=== PATIENT | male | born 1980 | race Caucasian/White ===

== ENCOUNTER 2019-04-25 08:25 | Emergency (ER) | payer SELFPAY ==
[2019-04-25 08:26] VITALS: BP 176/113; PULSE 75; RESP 16; TEMP 36.9; O2SAT 100; BMI 19.8
--- NOTE | 2019-04-25 08:42 | CT_ITS ---
STUDY: CT ABDOMEN AND PELVIS WITH CONTRAST REASON FOR EXAM: Male, 39 years old. 2 day history of mid buttock pain. History of anal fistulas. RADIATION DOSAGE (If Supplied By Facility): CTDIvol = ( 9.91 ) mGy, DLP = ( 488.02 ) mGycm TECHNIQUE: Transaxial images were obtained from the dome of the diaphragm to the symphysis pubis without oral contrast. IV 100mL Isovue-300 100 was administered. Sagittal and coronal images were reconstructed. Individualized dose optimization techniques were used for this CT. COMPARISON: None. FINDINGS: The visualized lung bases are unremarkable. The visualized portions of the heart are within normal limits. Normal liver. Normal gallbladder and extrahepatic biliary system. Normal spleen. Normal pancreas. Normal bilateral adrenal glands. Normal right kidney. Normal left kidney. There is a small hiatal hernia. There is evidence of a circumferential wall thickening of the proximal small bowel loops although without oral contrast, the bowel is not adequately distended. Clinical correlation is recommended. Normal colon. There are surgical clips in the region of the appendix consistent with a prior appendectomy. Normal abdominal aorta. Normal inferior vena cava. Normal retroperitoneum. Normal urinary bladder. There is a 1.5 cm x 2.1 cm x 3 cm rounded hypodensity in the posterior aspect of the perineum. This may represent a small cyst or possible abscess. Mild increased markings in the surrounding fat. Small bilateral benign-appearing inguinal lymph nodes. Normal osseous structures. CT/Abdomen/Pelvis W IV Cont ONLY IMPRESSION: 1.5 cm x 2.1 cm x 3 cm rounded hypodensity posterior aspect of the perineum. Diffusely thickened proximal small bowel loops. Clinical correlation is recommended. Electronically Signed: Robbi Delcid, at 10:11 EST , Service support ,
--- NOTE | 2019-04-25 08:52 | ED.VISSUMM ---
- ER Visit Summary Date of Service: 04/25/19 Chief Complaint: Buttock pain History of Present Illness: The patient is a 39 M presenting with buttock pain x2 days. He states he is having pain with bowel movements and with sitting. He denies fever or drainage. He states he has had similar symptoms in the past that resolved with antibiotics. He has not followed up with a surgeon. Denies anal intercourse or rectal foreign bodies. Physical Examination: Vitals are stable. Patient is afebrile. Alert no acute distress. HEENT exam is unremarkable. Neck is supple. Lungs are clear and equal bilaterally. Heart is regular rate and rhythm. Abdomen is soft nontender nondistended. Tenderness of the gluteal cleft with no erythema, warmth, induration, fluctuance. exam is normal Rectal exam is normal. No tenderness or fluctuance. Extremities are unremarkable. Skin is warm and dry. Remainder of exam is unremarkable. Emergency Department Course and Treatment: Patient was given morphine, Zofran IV. CBC, chemistries unremarkable. CT abdomen pelvis shows 1.5 cm x 2.1 cm x 3 cm rounded hypodensity posterior aspect of the perineum. Diffusely thickened proximal small bowel loops. Discussed with Dr. Dunaway. Patient will follow-up in the office. He is given prescription for Bactrim, [place], Colace. Advised to return to the ED for worsening complaints. Disposition: Discharge home Impression: Buttock pain This note was generated with [employer] dictation software. It may contain incorrect words, spelling, and punctuation that were not noted in review of the chart prior to signing ED Disposition - Plan for ED Patient: Referrals: Care Physician,No Primary [Primary Care Provider] -
[2019-04-25 09:15] LABS: Absolute Lymphocyte Count 1.17 X10^3/uL (0.83-4.51); Absolute Neutrophil Count 7.9 X10^3/uL (2.0-7.7); Basophil# 0.02 X10^3/uL; Basophil% 0.2 % (0-1); Eosinophil# 0.05 X10^3/uL; Eosinophils% 0.5 % (0-5); Hematocrit 44.3 % (40-54); Hemoglobin 14.2 g/dL (13.0-16.5); Lymphocyte # 1.17 X10^3/ul (4.0); Lymphocyte % 11.4 % (19-41); Mean Corp Hgb Conc 32.1 g/dL (32-36); Mean Corpuscular Hgb 30.5 pg (27.0-32.0); Mean Corpuscular Volume 95.1 fL (80-94); Mean Platelet Vol. 8.9 fl (6.2-12.0); Monocyte# 1.05 X10^3/uL; Monocyte% 10.2 % (0-10); NRBC Flagged by Analyzer 0 % (0-5); Neutrophil # 7.92 X10^3/uL (2.7-7.7); Neutrophil % 77.3 % (47-70); Platelet Count 302 K/mm3 (150-450); RBC Distribution Width SD 42.5 fl (35.1-43.9); Red Blood Count 4.66 M/mm3 (4.6-6.2); White Blood Count 10.3 K/mm3 (4.4-11.0)
[2019-04-25] MEDS: Ondansetron 4 MG/2 ML Vial IV (09:15)
[2019-04-25] MEDS: Morphine 4 MG/ML Syringe IV ×2 (09:15→11:23)
[2019-04-25 09:29] LABS: Anion Gap 5 (5-15); BUN 10 mg/dL (7-18); BUN/Creat Ratio 13.1 RATIO (10-20); Calcium,Total 8.9 mg/dL (8.5-10.1); Chloride 106 mmol/L (98-107); Creatinine, Serum 0.76 mg/dL (0.70-1.30); EST Glomerular Filtration Rate 122 mL/min (>60); Est Glom Filt Rate - Afr Amer 147 mL/min (>60); Estimated Creatinine Clearance 128.07 ml/min; Glucose 98 mg/dL (74-106); Potassium 4.2 mmol/L (3.5-5.1); Sodium Level 139 mmol/L (136-145)
[2019-04-25 11:12] VITALS: BP 130/100; PULSE 78; RESP 18; O2SAT 99
--- NOTE | 2019-04-25 12:17 | DCINST.ED_ITS ---
ED Disposition - Plan for ED Patient: Instructions: ABSCESS, Antiobiotic Treatment Only Prescriptions: Smz/Tmp Ds [Bactrim Ds] 1 tablet PO BID #14 tablet Docusate Sodium [Colace] 100 mg PO DAILY #10 capsule Hydrocodone Bitart/Apap 5-325 [[place] 5MG-325MG] 1 tablet PO Q6H PRN PRN 3 Days #8 tablet PRN Reason: Pain Referrals: Care Physician,No Primary [Primary Care Provider] - Jami Dunaway MD [STAFF PHYSICIAN] -
[2019-04-25] MEDS: Smz/Tmp Ds Tablet 1 TABLET PO (12:32)
[2019-04-25 12:36] VITALS: BP 125/72; PULSE 62; RESP 16; O2SAT 97
== END 2019-04-25 12:38 | disposition home or self-care (01) ==
PROVIDERS: Emergency Provider Emergency Medicine
DX: M53.3 Sacrococcygeal disorders, not elsewhere classified (principal); K21.9 Gastro-esophageal reflux disease without esophagitis; Z72.0 Tobacco use
CPT/HCPCS: 74177; 80048; 85025; 96374; 96375; 96376; 99284; Q9967; A4216; J2405

== ENCOUNTER 2019-04-26 16:51 | Emergency (ER) | payer SELFPAY ==
[2019-04-25 08:26] VITALS: BMI 19.8
[2019-04-26 16:52] VITALS: BP 125/71; PULSE 78; RESP 15; TEMP 36.6; O2SAT 96; BMI 19.3
--- NOTE | 2019-04-26 17:57 | ED.VIS.GEN ---
History of Present Illness Chief Complaint: Abscess Detail of Chief Complaint: Increased pain and swelling perirectal area Informant: Patient Onset: Today Context: Sudden Onset Timing: Continuous Quality: Awoken from sleep at 0200 because of pain and swelling Location: Anus Current Severity: Mild Maximum Severity: Moderate Worsened by: Sitting, using the restroom Relieved by: Nothing Associated Symptoms: No other symptoms Narrative: Patient 39-year-old male was seen yesterday. He had an extensive work-up with no evidence of abscess. He believes he has an abscess now. He denies fever, chills night sweats. He denies history rheumatic fever, heart murmur, SBE or being immune suppressed. He denies blood or mucus in his stool. He denies rectal trauma. He denies history of pilonidal cyst. He states he has similar presentation several years ago and was prescribed antibiotics with resolution of his symptoms. He was prescribed Bactrim. Prior similar symptoms: Yes Recent Illness/Hospitalization: Yes - Past Medical History (1) History of abscess of skin and subcutaneous tissue Status: Acute Past Medical History - Allergies and Home Meds Allergies/Adverse Reactions: Allergies No Known Allergies Allergy (Verified 04/26/19 17:00) Primary Care Physician: Care Physician,No Primary [Primary Care Provider] - Prior records reviewed: Yes Lives: Alone Smoking Status: Current some day smoker Alcohol: Rare Drugs: None Review of Systems General: Denies: Chills, Fever, Malaise, Sweats Cardiovascular: Denies: Chest pain Respiratory: Denies: Dyspnea Gastrointestinal: Reports: - - Rectal pain. Denies: Abdominal pain, Nausea, Vomiting, Diarrhea, Melena, Hematochezia Genitourinary: Denies: Dysuria, Hematuria, Frequency Musculoskeletal: Denies: Myalgias, Arthralgias, Neck pain, Back pain, Swelling, Extremity Pain, -, - Skin: Reports: Abrasions. Denies: Rash Hematologic: Denies: Easy bruising, Easy bleeding Allergy: Denies: Uticaria, Swelling of the mouth Physical Exam Vital Signs/Narrative: Vital Signs Temp Pulse Resp BP Pulse Ox 04/26/19 16:52 97.9 F 78 15 125/71 H 96 Inital Vital Signs reviewed: Yes General: Well nourished, Well developed, No Acute Distress Head: Normocephalic, Atraumatic Eyes: Perrl, EOMI. Negative for: Pale conjunctiva, Scleral icterus ENT: Moist mucous membranes, No rhinorrhea Neck: Supple, Nontender Cardiovascular: Regular rate, Regular rhythm, No murmurs, Normal S1, Normal S2 Respiratory: No distress, CTA bilaterally, Chest nontender Rectal: - - He has a perianal abscess. Slightly to the left of the gluteal crease and extends to the anus. : - - Unremarkable Back: Nontender, Normal Inspection Extremities: Nontender, No edema Skin: Normal color, No rash, No Trauma. Negative for: Cyanosis, Diaphoresis, Jaundice Neurological: Alert, Oriented x3, Cranial nerves II-XII grossly intact, Normal Strength, Normal Sensation Diagnostic/Tx/Re-eval - Medical Decision Making Patient has a perianal abscess. Patient was informed that the treatment for an abscess is an incision and drainage. He did sign consent after he was informed what the procedure entailed and risk benefits. No questions were asked. We will change antibiotic to Augmentin or coverage of Bacteroides faecalis Procedures Procedure(s): Patient was prepped draped sterile manner. The area was anesthetized with 1% lidocaine. A total of 4 cc was instilled. After patient was anesthetized. Incision was made using a 10 blade. The incision was 2 cm in length. Free flow of purulent material. Blunt dissection was undertaken with more purulent material. There is a total of 30 cc. Wick was placed after cavity was irrigated. ED Disposition - Plan for ED Patient: Disposition: Home or Assisted Living Diagnosis: Perianal abscess Instructions: ABSCESS, Incision and Drainage Prescriptions: Amox/Clavulanate Tablet [Augmentin Tablet] 875 mg PO Q12H #14 tab Prescription Printed Oxycodone HCl/Acetaminophen [Percocet 5/325] 1 tab PO Q6H PRN PRN 3 Days #12 tab PRN Reason: Pain Prescription Printed Referrals: Care Physician,No Primary [Primary Care Provider] - Jami Dunaway MD [STAFF PHYSICIAN] - Keep Nasrin appointment
[2019-04-26] MEDS: Amox/Clavulanate 875 MG Tablet PO (18:14)
[2019-04-26 18:21] VITALS: PULSE 82; RESP 17; O2SAT 98
== END 2019-04-26 18:22 | disposition home or self-care (01) ==
PROVIDERS: Emergency Provider Emergency Medicine
DX: K61.0 Anal abscess (principal); F17.200 Nicotine dependence, unspecified, uncomplicated
CPT/HCPCS: 10060; 99283

== ENCOUNTER 2020-01-28 06:46 | Emergency (ER) | payer SELFPAY ==
[2020-01-28 06:47] VITALS: BP 131/90; PULSE 71; RESP 16; TEMP 36.6; O2SAT 100; BMI 19.0
--- NOTE | 2020-01-28 06:59 | ED.VISSUMM ---
- ER Visit Summary Date of Service: 01/28/20 Chief Complaint: Abscess History of Present Illness: The patient is a 39 M who presents with a pilonidal abscess. He has had these 2 times before. This is been ongoing for 2 days. It is worse when he touches or sits on this area. He denies fevers. No drainage. It is painful to touch. Physical Examination: Vital signs reviewed. Skin exam reveals a 2 x 2 centimeter abscess in the pilonidal area. It is fluctuant. There is no drainage. Rest of the physical exam is unremarkable Test Results: None performed Emergency Department Course and Treatment: Patient had incision and drainage of the abscess. 2 cc of lidocaine was used to anesthetize the area locally. A cruciate incision was made over the dome of the abscess. Hemostats were used to break up loculations. There was a moderate amount of purulent drainage. Patient tolerated the procedure well. Patient will be placed on Bactrim. He will be given general surgery follow-up Treatment Plan: [] Disposition: Discharge Impression: Pilonidal abscess I&D by ED physician This note was generated with [employer] dictation software. It may contain incorrect words, spelling, and punctuation that were not noted in review of the chart prior to signing ED Disposition - Plan for ED Patient: Disposition: Home or Assisted Living Instructions: ED Abscess Incision And Drainage Prescriptions: Smz/Tmp Ds [Bactrim Ds] 1 tab PO BID #14 tab Transmission Status: Pending to [facility] Referrals: Care Physician,No Primary [Primary Care Provider] -
[2020-01-28] MEDS: Smz/Tmp Ds Tablet 1 TABLET PO (07:08)
== END 2020-01-28 07:35 | disposition home or self-care (01) ==
LOC: ED 07:21
PROVIDERS: Emergency Provider Emergency Medicine
DX: L05.01 Pilonidal cyst with abscess (principal); Z72.0 Tobacco use
CPT/HCPCS: 10080; 99283

== ENCOUNTER 2020-04-09 04:13 | Emergency (ER) | payer SELFPAY ==
[2020-04-09 04:14] VITALS: BP 144/96; PULSE 76; RESP 16; TEMP 36.3; O2SAT 98; BMI 19.1
--- NOTE | 2020-04-09 04:35 | ED.VIS.GEN ---
History of Present Illness Chief Complaint: Bite Informant: Patient Narrative: Patient is a 40-year-old previously healthy male who presents to the emergency department after he sustained a dog bite to his face and neck. This was his own dog. He states he leaned into get the dog and cats whenever it bit him. Bleeding has been controlled prior to arrival in the emergency department. He has a large laceration at the upper lip involving the vermilion border. There is also multiple small lacerations on the face and neck. Patient not sure when his last tetanus shot was. He is not on any anticoagulation. Denies any other injuries. His dog will be able to be monitored for the next 10 days. Past Medical History - Allergies and Home Meds Allergies/Adverse Reactions: Allergies No Known Allergies Allergy (Verified 04/09/20 04:16) Primary Care Physician: Care Physician,No Primary [Primary Care Provider] - Prior records reviewed: Yes Past Medical History: None Smoking Status: Current every day smoker Review of Systems All systems negative except as indicated General: Denies: Chills, Fever Eyes: Denies: Visual changes - bilaterally, Diplopia Cardiovascular: Denies: Chest pain Respiratory: Denies: Dyspnea, Cough Gastrointestinal: Denies: Abdominal pain, Nausea, Vomiting Musculoskeletal: Denies: Back pain, Extremity Pain Skin: Reports: Abrasions, Wounds. Denies: Rash Neurological: Denies: Headache, Weakness, Numbness Physical Exam Vital Signs/Narrative: Vital Signs Temp Pulse Resp BP Pulse Ox 04/09/20 04:14 97.4 F L 76 16 144/96 H 98 Inital Vital Signs reviewed: Yes General: Well nourished, Well developed Head: Normocephalic Eyes: Perrl, EOMI ENT: Moist mucous membranes Neck: Supple, Nontender, - - V-shaped laceration to right side of the neck. No active bleeding. Each side is approximately 1.5 cm. This is not deep and does not involve any underlying structures. Cardiovascular: Regular rate, Regular rhythm Respiratory: No distress, CTA bilaterally Abdomen: Soft, Nondistended Back: Negative for: Spinal tenderness Extremities: Nontender Skin: Trauma - Patient has multiple lacerations on the right side of the face and neck. The laceration to the lip is very extensive and creates a flap. The vermilion border is involved. Does not appear to go through and through. Neurological: Alert, Cranial nerves II-XII grossly intact, Normal Strength, Normal Sensation Psychological: Normal affect, Normal Mood Diagnostic/Tx/Re-eval - Medical Decision Making Patient presents to the emergency department after getting bit by his dog. He is updated on his tetanus status. Due to the extensive nature of the facial lacerations which does involve the vermilion border I did recommend that the patient be evaluated by a plastic surgeon. I did offer to do the repair in the emergency department but it would get better cosmetic outcome by a surgeon. Patient did want to go this route. He wanted to go to [facility]. I did call and speak with the on-call plastic surgeon, Dr. Ann. She did request pictures and patient consented to having his picture taken of the lip laceration. This was sent only her and the pictures were then deleted. Patient given a dose of oral Augmentin. Patient will be transported by private vehicle to the [facility] emergency department for evaluation. He understands and is agreeable this plan. He is discharged at this time in stable condition. ED Disposition - Plan for ED Patient: Disposition: [facility] Diagnosis: Dog bite, Complex laceration of face, Laceration of neck Referrals: Care Physician,No Primary [Primary Care Provider] - Additional Instructions: Go to [facility] Emergency department. Dr. Ann, the information technology account manager plastic surgeon will evaluate you there.
[2020-04-09] MEDS: Diphth,Pertuss(Acell),Tet Vac 0.5 ML Vial IM (04:52)
[2020-04-09] MEDS: Amox/Clavulanate 875 MG Tablet PO (04:53)
== END 2020-04-09 05:34 | disposition short-term general hospital (02) ==
PROVIDERS: Emergency Provider Emergency Medicine
DX: S01.511A Laceration without foreign body of lip, initial encounter (principal); S11.91XA Laceration without foreign body of unspecified part of neck, initial encounter; Z23 Encounter for immunization; F17.200 Nicotine dependence, unspecified, uncomplicated; W54.0XXA Bitten by dog, initial encounter; Y93.89 Activity, other specified; Y92.009 Unspecified place in unspecified non-institutional (private) residence as the place of occurrence of the external cause; Y99.8 Other external cause status
CPT/HCPCS: 90715; 99283

== ENCOUNTER 2022-05-30 08:28 | Observation (INO) | payer SELFPAY ==
[2022-05-30] VITALS (9 sets, daily range): BP systolic 120–161; BP diastolic 81–96; PULSE 53–85; RESP 14–18; TEMP 36.3–36.7; O2SAT 97–100; BMI 19.8; BMI 18.2
--- NOTE | 2022-05-30 09:15 | CT_ITS ---
STUDY: CT ABDOMEN AND PELVIS WITH CONTRAST REASON FOR EXAM: Male, 42 years old. Back pain, rectal bleeding -- IV PO Contrast RADIATION DOSAGE (If Supplied By Facility): CTDIvol = ( 11.02 ) mGy, DLP = ( 437.71 ) mGycm TECHNIQUE: Transaxial images were obtained from the dome of the diaphragm to the symphysis pubis with oral contrast. Oral and amp;amp; IV Gastrografin and amp;amp; 100mL Isovue-300 was administered. Sagittal and coronal images were reconstructed. Individualized dose optimization techniques were used for this CT. COMPARISON: Comparison is made with prior study dated 04/25/2019. FINDINGS: The visualized lung bases are unremarkable. The visualized portions of the heart are within normal limits. Normal liver. Normal gallbladder and extrahepatic biliary system. Normal spleen. Normal pancreas. Normal bilateral adrenal glands. Normal right kidney. Normal left kidney. Normal visualized stomach. There is evidence of a mural thickening of the terminal ileum with narrowing as well as thickening of the haustral pattern of the right hemicolon. Crohn''s disease should be ruled out. There is also evidence of a sigmoid diverticulosis. The patient is status post appendectomy. Normal abdominal aorta. Normal inferior vena cava. Normal retroperitoneum. Diffuse bladder wall thickening. Normal abdominal wall. Normal osseous structures. CT/Abdomen/Pelvis WITH Contrast IMPRESSION: Findings suggestive of a inflammatory bowel disease involving the terminal ileum in the right hemicolon. Sigmoid diverticulosis. Diffuse bladder wall thickening. Electronically Signed: Robbi Delcid MD at 12:05 EST ,
--- NOTE | 2022-05-30 09:16 | EDS_ITS ---
HPI History of Present Illness Chief Complaint: Back Detail of Chief Complaint: Back pain, GI bleed Informant: patient Onset/Context/Timing Onset: Weeks Context: Gradual Onset Timing: Waxes and wanes Current Severity: Moderate Maximum Severity: Severe Narrative Narrative: Patient presents with several week history of increasing low back pain.He does note some intermittent blood in his stool the last couple days. He states he had similar symptoms about 6 months ago that seem to resolve and he never got checked out for it. He does note having a bowel movement 5 or 6 times a day and only able to pass a small amount of stool at a time.He denies fever or chills. No unintentional weight loss. He does have a history of diverticulitis. He states he also drinks regularly and was concerned about liver or kidney problems. [facility] Medical History Diverticulitis Home Medications NK 04/09/20 [History Last Taken Unknown] Allergy/AdvReac Type Severity Reaction Status Date / Time No Known Allergies Allergy Verified 04/09/20 04:16 Surgical History Hx of appendectomy Social History (Updated 05/30/22 @ 09:[address] Beth Tucker MD) Smoking Status: Current every day smoker tobacco type: cigarettes alcohol intake: current ROS ROS ED Constitutional Constitutional ED: Denies chills or fever(s) Eyes Eyes: Denies change in vision or discharge from eye(s) ENT ENT ED: Denies discharge from eye(s), rhinorrhea or sore throat Cardiovascular Cardiovascular: Denies chest pain or palpitations Respiratory/Chest Respiratory/Chest: Denies cough or dyspnea Gastrointestinal Gastrointestinal: Reports abdominal pain and other Details: Blood in stool ; Denies diarrhea, nausea or vomiting Genitourinary Genitourinary ED: Denies difficulty urinating or dysuria Musculoskeletal Musculoskeletal: Reports back pain; Denies extremity pain Integumentary Denies Abrasions or rash Neurologic Neurologic: Denies headache(s) or weakness Psychiatric Psychiatric: Denies anxiety or depression Allergic/Immunologic Allergic/Immunologic ED: Denies lip swelling or urticaria EXAM Physical Exam Const Vital Signs: 05/30/22 08:29 05/30/22 10:56 05/30/22 12:20 Temperature 97.3 F L Temperature Source Temporal Pulse Rate 74 60 61 Respiratory Rate 18 16 18 Blood Pressure 123/81 H 127/96 H 131/95 H Blood Pressure Mean 95 106 107 Pulse Ox 100 100 100 Oxygen Delivery Method Room Air Room Air Room Air Positive well nourished and well developed General Appearance ED: well developed HEENT Reports normocephalic and head/scalp atraumatic Eyes PERRL and EOMs intact bilaterally Neck supple Chest Wall inspection of chest normal and palpation of chest normal Resp normal respiratory effort and clear to auscultation bilaterally Cardio regular rate and regular rhythm GI non-tender Auscultation: hypoactive bowel sounds Palpation: soft Back/Spine no CVA tenderness Back/Spine Narrative: Mild midline lumbar tenderness. No erythema or skin changes. Extremity normal to inspection Neuro oriented x3 and no sensory deficits noted Sensorium / Orientation: alert Motor Exam: strength 5/5 throughout Psych Mood & Affect: tearful Skin no rashes or lesions noted MDM MDM MDM Narrative Medical decision making narrative: Patient has been receiving morphine and Zofran for pain control. IV fluids ordered. Lab work obtained along with CT scan of the abdomen and pelvis. Lab Data Attestation: I reviewed the patient's lab results. Labs: Laboratory Results - last 24 hr 05/30/22 05/30/22 05/30/22 09:36 09:36 09:36 WBC 8.4 RBC 4.53 L Hgb 13.9 Hct 43.4 MCV 95.8 H MCH 30.7 MCHC 32.0 RDW Std Deviation 42.3 RDW Coeff of Emre 11.9 Plt Count 302 MPV 9.2 Immature Gran % (Auto) 0.200 Neut % (Auto) 68.6 Lymph % (Auto) 22.2 [place] % (Auto) 8.0 Eos % (Auto) 0.8 Baso % (Auto) 0.2 Absolute Neuts (auto) 5.7 Absolute Lymphs (auto) 1.85 Nucleated RBC % 0 PT 11.9 INR 0.9 APTT 29.5 Sodium 140 Potassium 3.8 Chloride 109 H Carbon Dioxide 29.0 Anion Gap 2 L BUN 10 Creatinine 0.81 Estim Creat Clear Calc 116.66 Est GFR (MDRD) Af Amer 136 Est GFR (MDRD) Non-Af 112 BUN/Creatinine Ratio 12.4 Glucose 103 Calcium 8.9 Total Bilirubin 0.90 Direct Bilirubin 0.23 AST 23 ALT 30 Alkaline Phosphatase 58 Total Protein 7.0 Albumin 3.8 Globulin 3.2 Radiography Diagnostic Testing: Clinical Impression(s) from Imaging Studies Abdomen/Pelvis CT 05/30/22 09:15 IMPRESSION: Findings suggestive of a inflammatory bowel disease involving the terminal ileum in the right hemicolon. Sigmoid diverticulosis. Diffuse bladder wall thickening. Electronically Signed: Robbi Delcid MD at 12:05 EST , Treatment and Re-Evaluation Narrative: CBC reveals normal white count 8.4 and hemoglobin is 13.9. Coags unremarkable. Chemistry studies along with LFTs are unremarkable. CT scan of the abdomen pelvis reveals findings suggestive of inflammatory bowel disease. I spoke with Dr. Wheeler, on-call for GI. He would like the patient to be admitted for IV Peace u-Medrol 125 mg every 6 hours. He would like stool studies ordered and he will see the patient with a probable scope tomorrow. This is been discussed with the patient and he is in agreement. I will speak with the hospitalist. Discharge Plan Triage Chief Complaint: Back ED Provider: Beth Tucker Dx/Rx/DC Orders Clinical Impression: Inflammatory bowel disease Prescriptions: No Action NK Primary Care Provider: Care Physician,No Primary Referrals: Care Physician,No Primary [Primary Care Provider] - Disposition Disposition: Acute Care [facility]
[2022-05-30] MEDS: Ondansetron 4 MG/2 ML Vial IV ×2 (09:32→11:40)
[2022-05-30] MEDS: Morphine 4 MG/ML Syringe IV ×2 (09:32→11:40)
[2022-05-30] MEDS: 0.9% Normal Saline 1,000 ML 150 ML IV (09:33)
[2022-05-30 09:44] LABS: Absolute Lymphocyte Count 1.85 X10^3/uL (0.83-4.51); Absolute Neutrophil Count 5.7 X10^3/uL (2.0-7.7); Basophil# 0.02 X10^3/uL; Basophil% 0.2 % (0-1); Eosinophil# 0.07 X10^3/uL; Eosinophils% 0.8 % (0-5); Hematocrit 43.4 % (40-54); Hemoglobin 13.9 g/dL (13.0-16.5); Lymphocyte # 1.85 X10^3/ul (0.83-4.51); Lymphocyte % 22.2 % (19-41); Mean Corpuscular Hgb 30.7 pg (27.0-32.0); Mean Corpuscular Volume 95.8 fL (80-94); Mean Platelet Vol. 9.2 fl (6.2-12.0); Monocyte# 0.67 X10^3/uL; NRBC Flagged by Analyzer 0 % (0-5); Neutrophil # 5.72 X10^3/uL (2.7-7.7); Neutrophil % 68.6 % (47-70); Platelet Count 302 K/mm3 (150-450); RBC Distribution Width CV 11.9 % (11.6-14.6); RBC Distribution Width SD 42.3 fl (35.1-43.9); Red Blood Count 4.53 M/mm3 (4.6-6.2); White Blood Count 8.4 K/mm3 (4.4-11.0)
[2022-05-30 09:50] LABS: International Normalized Ratio 0.9; Prothrombin Time (Protime)PT. 11.9 SECONDS (11.7-14.9)
[2022-05-30 09:51] LABS: Partial Thromboplast Time 29.5 Seconds (24.1-36.2)
[2022-05-30 09:55] LABS: AST(SGOT) 23 U/L (15-37); Alanine Aminotransfer ALT/SGPT 30 U/L (16-61); Albumin, Serum 3.8 g/dL (3.2-5.0); Alkaline Phosphatase 58 U/L (45-117); Anion Gap 2 (5-15); BUN 10 mg/dL (7-18); BUN/Creat Ratio 12.4 RATIO (10-20); Bilirubin, Direct 0.23 mg/dL (0.00-0.30); Calcium,Total 8.9 mg/dL (8.5-10.1); Chloride 109 mmol/L (98-107); Creatinine, Serum 0.81 mg/dL (0.70-1.30); EST Glomerular Filtration Rate 112 mL/min (>60); Est Glom Filt Rate - Afr Amer 136 mL/min (>60); Estimated Creatinine Clearance 116.66 ml/min; Globulin 3.2 g/dL (2.2-4.2); Glucose 103 mg/dL (74-106); Potassium 3.8 mmol/L (3.5-5.1); Sodium Level 140 mmol/L (136-145)
[2022-05-30] MEDS: MethylPREDNISolone 125 MG/2 ML Vial IV ×3 (13:08→23:05)
--- NOTE | 2022-05-30 13:10 | PCM.HP.STD ---
HPI - General General Date of Admission: 05/30/22 Date of Service: 05/30/22 Chief Complaint: Abdominal Pain/Back Pain HPI Narrative SUPRIYA DYER, is a 42 M who presented to the emergency department was coming hospital with back and abdominal pain. Patient states has been ongoing for couple months and he has been seeing his chiropractor. He has not had any relief and this morning when he woke up he stated his pain was 10 out of 10 therefore he came to the emergency department. They have given him some medication he states his pain is much better now than it was previously. He denies any radiation or associated tingling numbness and weakness. He has had no fever or chills. He denies any dysuria or urinary frequency. No gross hematuria. He states that his father is currently being worked up for a bowel disorder as well and at this point they are thinking it might be inflammatory bowel disease. Patient has no other family history of GI concerns. He denies any nausea or vomiting, constipation or diarrhea. He has had some blood in his stool on and off. States he had an episode several months ago like this but it went away without any intervention and he never had any further work-up done. Patient takes no medications regularly. Vital signs on presentation showed temperature 97.3, heart rate 74, blood pressure 123/81, respiratory rate 18, oxygen saturations 100% on room air. His CBC is under markable other than some mild macrocytosis with no associated anemia. Coags are normal. Chemistries are unremarkable. His UA was unremarkable with no signs of infection. CT of the abdomen pelvis shows findings suggestive of inflammatory bowel disease involving the terminal ileum in the right hemicolon, sigmoid diverticulosis, and diffuse bladder wall thickening. Case was discussed with Dr. Wheeler from gastroenterology by the emergency department physician he recommended we obtain stool studies and start IV Solu-Medrol 125 mg every 6 hours. He was given the initial dose of 125 mg in the emergency department. [facility] Medical History Diverticulitis Tetrahydrocannabinol (THC) use disorder, mild, abuse Tobacco abuse Home Medications NK 04/09/20 [History Last Taken Unknown] Allergy/AdvReac Type Severity Reaction Status Date / Time No Known Allergies Allergy Verified 04/09/20 04:16 Family History Other Bowel disease Surgical History Hx of appendectomy Social History Smoking Status: Current every day smoker tobacco type: cigars per week: 14 alcohol intake: current alcohol intake frequency: 3 or more drinks per day details: 3-4 12 oz Keeler Light daily substance use type: marijuana ROS Constitutional Constitutional: Reports anorexia; Denies change in weight, chills, fatigue, fever(s), malaise, night sweats, weakness or other Eyes Eyes: Denies blurry vision, change in eye color, change in vision, discharge from eye(s), double vision, erythema, eye pain, loss of vision or other ENT HEENT: Denies abnormal hearing, dysphagia, ear pain, epistaxis, headache(s), hearing loss, nasal congestion, nasal discharge, post nasal drip, sinus pressure, sore throat or other Cardiovascular Cardiovascular: Denies chest pain, claudication, dyspnea on exertion, edema, lightheadedness, orthopnea, palpitations, paroxysmal nocturnal dyspnea, rapid heart rate, syncope or other Respiratory/Chest Respiratory/Chest: Denies cough, dyspnea, excessive phlegm production, hemoptysis, productive cough, shortness of breath at rest, shortness of breath with exertion, wheezing or other Gastrointestinal Gastrointestinal: Reports abdominal pain and hematochezia; Denies coffee ground emesis, constipation, diarrhea, dyspepsia, hematemesis, loose stools, melena, nausea, vomiting or other Genitourinary Genitourinary: Denies burning urination, difficulty urinating, dysuria, hematuria, nocturia, urinary frequency, urinary hesitancy, urinary incontinence, urinary urgency or other Musculoskeletal Musculoskeletal: Reports back pain; Denies arthralgias, joint pain, joint stiffness, joint swelling, myalgias, neck pain or other Neurologic Neurologic: Denies abnormal gait, abnormal speech, confusion, disequilibrium, dizziness, focal weakness, headache(s), numbness, paresthesias, seizure-like activity, seizures, syncope, tingling, tremor(s) or other Psychiatric Psychiatric: Denies anxiety, depression, homicidal ideation, suicidal ideation or other Endocrine Endocrinology: Denies change in body appearance, cold intolerance, excessive sweating, heat intolerance, polydipsia, polyuria or other Hematologic/Lymphatic Hematologic/Lymphatic: Denies anemia, easy bleeding, easy bruising, lymphadenopathy or other Allergic/Immunologic Allergic/Immunologic: Denies rhinitis, hives, eczemia, asthma or other Vital Signs Vital Signs Vital Signs: 05/30/22 08:29 05/30/22 10:56 05/30/22 12:20 Temperature 97.3 F L Temperature Source Temporal Pulse Rate 74 60 61 Respiratory Rate 18 16 18 Blood Pressure 123/81 H 127/96 H 131/95 H Blood Pressure Mean 95 106 107 Pulse Ox 100 100 100 Oxygen Delivery Method Room Air Room Air Room Air Weight Weight: 68.039 kg Body Mass Index (BMI) 19.8 Physical Exam Const alert, oriented x3 and no apparent distress Constitutional Narrative: Thin, middle-aged, white male sitting up in bed, appears comfortable and nontoxic General Appearance: cooperative HEENT normocephalic, head/scalp atraumatic and hearing grossly normal bilaterally HEENT Narrative: Dentures in place, Mallampati 1, no thrush Eyes PERRL, EOMs intact bilaterally and conjunctivae normal Eyes Narrative: No scleral icterus Neck no lymphadenopathy and supple Neck Narrative: Trachea midline, no thyroid enlargement Resp normal respiratory effort, no retractions, no use of accessory muscles and clear to auscultation bilaterally Auscultation: Negative for crackles, rhonchi or wheezes Cardio regular rate, regular rhythm, S1 normal heart sound, S2 normal heart sound, no murmurs, no rub, no gallops and no clicks GI normal to inspection, nondistended, normoactive bowel sounds and soft to palpation; Negative for non-tender GI Narrative: Very mild diffuse tenderness most notable on the right side and left side in the lower quadrants Back/Spine General Back: tenderness Lumbar Spine / Lower Back: paraspinal muscle tenderness, paraspinal muscle spasm and straight leg raise negative bilaterally Extremity no clubbing, cyanosis or edema Extremity Narrative: 2+ pedal pulses Neuro oriented x3, CN's II-XII intact bilaterally, moves all extremities and no focal motor deficits Speech: speech normal Psych affect normal Psych Narrative: Very pleasant Results Lab / Micro Data Attestation: I reviewed the patient's lab results. Result Diagrams: 05/30/22 09:36 05/30/22 09:36 Labs: Laboratory Results - last 24 hr 05/30/22 09:36: WBC 8.4, RBC 4.53 L, Hgb 13.9, Hct 43.4, MCV 95.8 H, MCH 30.7, MCHC 32.0, RDW Std Deviation 42.3, RDW Coeff of Emre 11.9, Plt Count 302, MPV 9.2, Immature Gran % (Auto) 0.200, Neut % (Auto) 68.6, Lymph % (Auto) 22.2, [place] % (Auto) 8.0, Eos % (Auto) 0.8, Baso % (Auto) 0.2, Absolute Neuts (auto) 5.7, Absolute Lymphs (auto) 1.85, Nucleated RBC % 0 05/30/22 09:36: PT 11.9, INR 0.9, APTT 29.5 05/30/22 09:36: Sodium 140, Potassium 3.8, Chloride 109 H, Carbon Dioxide 29.0, Anion Gap 2 L, BUN 10, Creatinine 0.81, Estim Creat Clear Calc 116.66, Est GFR (MDRD) Af Amer 136, Est GFR (MDRD) Non-Af 112, BUN/Creatinine Ratio 12.4, Glucose 103, Calcium 8.9, Total Bilirubin 0.90, Direct Bilirubin 0.23, AST 23, ALT 30, Alkaline Phosphatase 58, Total Protein 7.0, Albumin 3.8, Globulin 3.2 Radiology Impression Abdomen/Pelvis CT 05/30/22 09:15 IMPRESSION: Findings suggestive of a inflammatory bowel disease involving the terminal ileum in the right hemicolon. Sigmoid diverticulosis. Diffuse bladder wall thickening. Electronically Signed: Robbi Delcid MD at 12:05 EST , Assessment & Plan Assessment/Plan (1) Inflammatory bowel disease: (2) Abdominal pain: (3) Back pain: PLAN: Plan Abdominal pain -CT from admission shows findings suggestive of inflammatory bowel disease involving the terminal ileum and right hemicolon with sigmoid diverticulosis and diffuse bladder wall thickening. -UA is pending -Start Solu-Medrol 125 every 6 per GI recommendations -N.p.o. -IV fluids at 75 cc/h with LR -Dilaudid for pain -Anticipate colonoscopy -No elevated white count or any signs of infection therefore we will hold antibiotics at this time Back pain -May be related to the above but unclear at this time -No abnormalities of the osseous structures on the CT -Check x-rays of lumbar spine -Check UA -If UA suggestive infection will obtain culture and start empiric antibiotics -Topical lidocaine -Zanaflex as needed -Dilaudid as above Tobacco abuse -Patient states he smokes about 2 cigars daily -Nicotine patch made available and patient notified -Recommend cessation Daily alcohol use -Patient indicates he drinks 3-4 Keeler Light's a day -Never had any withdrawal issues -Last drink was about 36 hours ago and no signs of withdrawal at this time -We will monitor clinically Marijuana use -Recommend cessation DVT prophylaxis -Lovenox 40 daily CODE STATUS -Full code Charges/Coding Visit Charges OBSV E&M: 33433 Initial observation care L3
--- NOTE | 2022-05-30 13:24 | NURSING ---
MED SURG OBS ALLISON INFLAMMATORY BOWEL DISEASE
--- NOTE | 2022-05-30 13:50 | RAD_ITS ---
STUDY: X-RAY - LUMBAR SPINE REASON FOR EXAM: Male, 42 years old. One and half month history of back pain. TECHNIQUE: 2 view(s) of the lumbar spine were obtained. COMPARISON: None FINDINGS: There is straightening of the normal lumbar lordosis. There is no substantial scoliosis. There is a normal alignment of the vertebrae. Normal vertebral bodies and endplates. Normal disc space heights. Oral contrast is seen in the colon as well as intravenous contrast in the kidneys from prior CT scan. RAD/Lumbar Spine 2 or 3 Views IMPRESSION: Straightening of the normal lumbar lordosis. Electronically Signed: Robbi Delcid MD at 14:13 EST ,
[2022-05-30 14:05] LABS: Bacteria 0 SEEN /hpf (None Seen); Mucous, Urine 0 SEEN /hpf (<or=2+); Red Blood Cells-Urine 0 SEEN /hpf (0-5); Squamous Epithelial Cells - UA 0 SEEN /hpf (0-5); White Blood Cells 0 SEEN /hpf (0-5)
[2022-05-30 14:17] LABS: Color, Urine Yellow (Yellow); Glucose, Dipstick Normal (Normal); Ketone-Dipstick Negative (Negative); Leukocyte Esterase-Dipstick Negative /ul (Negative); Nitrite-Dipstick Negative (Negative); Occult Blood-Urine Negative /ul (Negative); Protein-Dipstick Negative (Negative); Urine Bilirubin Dipstick Negative (Negative); Urine Clarity Clear (Clear); Urine Urobilinogen Normal (Normal)
[2022-05-30 14:24] LABS: Amorphous Sediment 1+
[2022-05-30] MEDS: Lactated Ringers 1,000 ML 75 ML IV (16:40)
[2022-05-30] MEDS: Bisacodyl 5 MG Tablet 20 MG PO (16:41)
[2022-05-30] MEDS: Acetaminophen 325 MG Tablet 650 MG PO ×2 (16:42→23:03)
--- NOTE | 2022-05-30 17:05 | EX.PCM.CON.G ---
HPI Consult Data Date of Consult: 05/30/22 HPI Narrative Reason for Consultation: Possible Crohn's disease HPI Narrative: SUPRIYA DYER, is a 42 M who presents with several week history of increasing low back pain.He does note some intermittent blood in his stool the last couple days.? He states he had similar symptoms about 6 months ago that seem to resolve and he never got checked out for it.? He does note having a bowel movement 5 or 6 times a day and only able to pass a small amount of stool at a time.He denies fever or chills.? No unintentional weight loss.? He does have a history of diverticulitis.? He states he also drinks regularly and was concerned about liver or kidney problems. e has had some blood in his stool on and off.? States he had an episode several months ago like this but it went away without any intervention and he never had any further work-up done.? Patient takes no medications regularly. Vital signs on presentation showed temperature 97.3, heart rate 74, blood pressure 123/81, respiratory rate 18, oxygen saturations 100% on room air.? His CBC is under markable other than some mild macrocytosis with no associated anemia.? His coagulation cascade is normal and his biochemistry profile is normal. His UA was unremarkable with no signs of infection.? CT of the abdomen pelvis shows findings suggestive of inflammatory bowel disease involving the terminal ileum in the right hemicolon, sigmoid diverticulosis, and diffuse bladder wall thickening. stool studies were ordered and he was start IV Solu-Medrol 125 mg every 6 hours.? [facility] Medical History Diverticulitis Tetrahydrocannabinol (THC) use disorder, mild, abuse Tobacco abuse Home Medications NK 04/09/20 [History Last Taken Unknown] Allergy/AdvReac Type Severity Reaction Status Date / Time No Known Allergies Allergy Verified 04/09/20 04:16 Family History Other Bowel disease Surgical History Hx of appendectomy Social History Smoking Status: Current every day smoker tobacco type: cigars per week: 14 alcohol intake: current alcohol intake frequency: 3 or more drinks per day details: 3-4 12 oz Gomer Light daily substance use type: marijuana ROS Constitutional Constitutional: Reports anorexia; Denies change in weight, chills, fatigue, fever(s), malaise, night sweats, weakness or other Eyes Eyes: Denies blurry vision, change in eye color, change in vision, discharge from eye(s), double vision, erythema, eye pain, loss of vision or other ENT HEENT: Denies abnormal hearing, dysphagia, ear pain, epistaxis, headache(s), hearing loss, nasal congestion, nasal discharge, post nasal drip, sinus pressure, sore throat or other Cardiovascular Cardiovascular: Denies chest pain, claudication, dyspnea on exertion, edema, lightheadedness, orthopnea, palpitations, paroxysmal nocturnal dyspnea, rapid heart rate, syncope or other Respiratory/Chest Respiratory/Chest: Denies cough, dyspnea, excessive phlegm production, hemoptysis, productive cough, shortness of breath at rest, shortness of breath with exertion, wheezing or other Gastrointestinal Gastrointestinal: Reports abdominal pain and hematochezia; Denies coffee ground emesis, constipation, diarrhea, dyspepsia, hematemesis, loose stools, melena, nausea, vomiting or other Genitourinary Genitourinary: Denies burning urination, difficulty urinating, dysuria, hematuria, nocturia, urinary frequency, urinary hesitancy, urinary incontinence, urinary urgency or other Musculoskeletal Musculoskeletal: Reports back pain; Denies arthralgias, joint pain, joint stiffness, joint swelling, myalgias, neck pain or other Neurologic Neurologic: Denies abnormal gait, abnormal speech, confusion, disequilibrium, dizziness, focal weakness, headache(s), numbness, paresthesias, seizure-like activity, seizures, syncope, tingling, tremor(s) or other Psychiatric Psychiatric: Denies anxiety, depression, homicidal ideation, suicidal ideation or other Endocrine Endocrinology: Denies change in body appearance, cold intolerance, excessive sweating, heat intolerance, polydipsia, polyuria or other Hematologic/Lymphatic Hematologic/Lymphatic: Denies anemia, easy bleeding, easy bruising, lymphadenopathy or other Allergic/Immunologic Allergic/Immunologic: Denies rhinitis, hives, eczemia, asthma or other Physical Exam Const alert, oriented x3 and no apparent distress General Appearance: cooperative HEENT normocephalic, head/scalp atraumatic and hearing grossly normal bilaterally Eyes PERRL, EOMs intact bilaterally and conjunctivae normal Eyes Narrative: No scleral icterus Neck no lymphadenopathy and supple Neck Narrative: Trachea midline, no thyroid enlargement Resp normal respiratory effort, no retractions, no use of accessory muscles and clear to auscultation bilaterally Auscultation: Negative for crackles, rhonchi or wheezes Cardio regular rate, regular rhythm, S1 normal heart sound, S2 normal heart sound, no murmurs, no rub, no gallops and no clicks GI normal to inspection, nondistended, normoactive bowel sounds and soft to palpation; Negative for non-tender GI Narrative: Very mild diffuse tenderness most notable on the right side and left side in the lower quadrants Back/Spine General Back: tenderness Lumbar Spine / Lower Back: paraspinal muscle tenderness, paraspinal muscle spasm and straight leg raise negative bilaterally Extremity no clubbing, cyanosis or edema Extremity Narrative: 2+ pedal pulses Neuro oriented x3, CN's II-XII intact bilaterally, moves all extremities and no focal motor deficits Speech: speech normal Psych affect normal Psych Narrative: Very pleasant Lab / Micro Data Result Diagrams: 05/30/22 09:36 05/30/22 09:36 Labs: Laboratory Results - last 24 hr 05/30/22 09:36: WBC 8.4, RBC 4.53 L, Hgb 13.9, Hct 43.4, MCV 95.8 H, MCH 30.7, MCHC 32.0, RDW Std Deviation 42.3, RDW Coeff of Emre 11.9, Plt Count 302, MPV 9.2, Immature Gran % (Auto) 0.200, Neut % (Auto) 68.6, Lymph % (Auto) 22.2, [place] % (Auto) 8.0, Eos % (Auto) 0.8, Baso % (Auto) 0.2, Absolute Neuts (auto) 5.7, Absolute Lymphs (auto) 1.85, Nucleated RBC % 0 05/30/22 09:36: PT 11.9, INR 0.9, APTT 29.5 05/30/22 09:36: Sodium 140, Potassium 3.8, Chloride 109 H, Carbon Dioxide 29.0, Anion Gap 2 L, BUN 10, Creatinine 0.81, Estim Creat Clear Calc 116.66, Est GFR (MDRD) Af Amer 136, Est GFR (MDRD) Non-Af 112, BUN/Creatinine Ratio 12.4, Glucose 103, Calcium 8.9, Total Bilirubin 0.90, Direct Bilirubin 0.23, AST 23, ALT 30, Alkaline Phosphatase 58, Total Protein 7.0, Albumin 3.8, Globulin 3.2 05/30/22 14:00: Urine Color Yellow, Urine Clarity Clear, Urine pH 8.0, Ur Specific [place] 1.010, Urine Protein Negative, Urine Glucose (UA) Normal, Urine Ketones Negative, Urine Occult Blood Negative, Urine Nitrite Negative, Urine Bilirubin Negative, Urine Urobilinogen Normal, Ur Leukocyte Esterase Negative, Urine RBC 0 SEEN, Urine WBC 0 SEEN, Ur Squamous Epith Cells 0 SEEN, Amorphous Sediment 1+, Urine Bacteria 0 SEEN, Urine Mucus 0 SEEN Micro: Microbiology 05/30/22 14:57 Stool Stool Lactoferrin - Final Radiology Impression Abdomen/Pelvis CT 05/30/22 09:15 IMPRESSION: Findings suggestive of a inflammatory bowel disease involving the terminal ileum in the right hemicolon. Sigmoid diverticulosis. Diffuse bladder wall thickening. Electronically Signed: Robbi Delcid MD at 12:05 EST , Lumbar Spine X-Ray 05/30/22 13:50 IMPRESSION: Straightening of the normal lumbar lordosis. Electronically Signed: Robbi Delcid MD at 14:13 EST , Assessment & Plan Assessment/Plan (1) Inflammatory bowel disease: PLAN: Likely inflammatory bowel disease. I will order stool culture and fecal calprotectin. I will also order ESR, CRP. He should undergo colonoscopy for evaluation of his lower GI tract. Continue Solu-Medrol 125 mg IV every 6 hours. He was explained alternatives, risk, benefits including outstanding bleeding, infection, sepsis, perforation, need for emergent or to . He will have an ASA of 1. Charges/Coding Visit Charges Inpatient E&M: 08114 Init Hosp L2
[2022-05-30] MEDS: Polyethylene Glycol 3350 BOWEL PREP PO (17:11)
[2022-05-31] VITALS (15 sets, daily range): BP systolic 116–163; BP diastolic 82–103; PULSE 49–85; RESP 15–18; TEMP 36.6–37.2; O2SAT 97–100; BMI 18.2
--- NOTE | 2022-05-31 | IMM_PTH ---
PATIENT: SUPRIYA DYER LOC: [facility] U#:[id number] AGE/SX: 42/M ROOM: [facility] RE05/30/[address]: Dr. Jaguar Juarez MD : 1980 BED: 1 DIS: 06/01/2022 SPEC #: [id number] RECD: 06/02/22 14:51 STATUS: JUDE REQ #: [id number] SANGITA: 05/31/22 00:[address]: Sundeep Wheeler DEPT: IMMUNOHISTOCHEMISTRY RECD BY: Stacia Thomas ENTERED: 06/02/22 14:53 SP TYPE: IMMUNO OTHR DR: MD Dr. Brianna Carrillo, DO No Primary Care Phys Tissues: C - Sigmoid colon biopsy Procedures: Synapto (add) CD56 (add) CHROMO (add) CK20 (add) CK7 (add) CK8 (add) MORROW-2 (add) KI-67 (add) P53 (add) Pankeratin (initial) CDX2 (add) PHYSICIAN & [address] [address] SPECIMEN INFORMATION: Tissue Source: C ? Sigmoid colon mass Clinical Info: Inflammatory bowel disease Specimen Number: [id number] CPT code: 07853, 04356 x10 METHODOLOGY: Deparaffinized sections of prefer/formalin-fixed tissue or PAP/DQ stained slides are incubated with monoclonal/polyclonal antibodies/oligonucleotide probes. Localization is made via biotin free immunoperoxidase method. Appropriate controls are performed and reacted as expected. Results on target cell population are indicated in the following table: RESULTS: ANTIBODY / CLONE RESULT Block C AE1-3 (AE1/AE3/PCK26) positive CK7 (OV-TL12/30) negative CK8 ([id number]) positive CK20 (KS20.8) positive MORROW-2 (SP21) positive CDX2 ([id number]) positive CD56 (123C3.D5) negative Chromo (LK2H10) negative Synapto (polyclonal) negative P53 (DO-7) positive, low (wild type) Ki-67 (30-9) positive, moderate These tests were developed and their performance characteristics determined by [facility]. They may not have been cleared or approved by the U.S. Food and Drug Administration. The FDA has determined that such clearance or approval is not necessary. The above immunohistochemical/dualISH markers are ordered and reviewed by the Pathologist. INTERPRETATION: C. Sigmoid colon mass, biopsy: Consistent with inflammatory polyp with focal hyperplastic changes. See comment. SJ:fawad 06/05/2022 Comment: Focal area of pseudoinvasion is noted. Case has been reviewed in consultation with Dr. Osorio who concurs with the above diagnosis. IDC:[id number]
[2022-05-31] MEDS: Lactated Ringers 1,000 ML 75 ML IV ×2 (04:18→12:38)
--- NOTE | 2022-05-31 05:55 | EKG12_ITS ---
Test Reason : AM EKG Blood Pressure : / mmHG Vent. Rate : 069 BPM Atrial Rate : 069 BPM P-R Int : 108 ms QRS Dur : 088 ms QT Int : 374 ms P-R-T Axes : -17 076 079 degrees QTc Int : 400 ms Sinus rhythm with short PA Otherwise normal ECG Confirmed by JULY FERMIN, TOYA ([id number]), supervising editor news reel NIKKI NEGRON ([id number]) on 05/31/2022 11:15:05 AM Referred By: Confirmed By:TOYA MCDOWELL MD
[2022-05-31] MEDS: MethylPREDNISolone 125 MG/2 ML Vial IV ×3 (06:18→18:43)
[2022-05-31] MEDS: 0.9% Saline Lock 10 ML Syringe IV ×3 (06:21→18:43)
--- NOTE | 2022-05-31 07:26 | PCM.PN.HOSP ---
Subjective Subjective Patient is a 42-year-old male admitted with 6-week history of abdominal and back pain. CT of the abdomen obtained on admission did show ?CT of the abdomen pelvis shows findings suggestive of inflammatory bowel disease involving the terminal ileum in the right hemicolon, sigmoid diverticulosis, and diffuse bladder wall thickening. Admitted to regular nursing floor with consultation placed to GI plan is for patient to undergo colonoscopy Objective Data Objective Data Vital Signs: Vital Signs Temp Pulse Resp BP Pulse Ox O2 Del Method 97.8 F 62 18 116/82 H 97 Room Air 05/31/22 06:25 05/31/22 06:25 05/31/22 06:25 05/31/22 06:25 05/31/22 06:25 05/31/22 06:25 Oxygen Delivery Method Room Air Weight: 62.624 kg Body Mass Index (BMI) 18.2 Intake & Output: Intake and Output for Last 24 Hours 05/29/22 05/30/22 05/31/22 23:59 23:59 23:59 Intake Total 1360 / 3360 2872.5 / 2872.5 Balance 1360 / 3360 2872.5 / 2872.5 Lab / Micro Data Result Diagrams: 05/31/22 06:46 05/31/22 06:46 Labs: Laboratory Results - last 24 hr 05/30/22 09:36: WBC 8.4, RBC 4.53 L, Hgb 13.9, Hct 43.4, MCV 95.8 H, MCH 30.7, MCHC 32.0, RDW Std Deviation 42.3, RDW Coeff of Emre 11.9, Plt Count 302, MPV 9.2, Immature Gran % (Auto) 0.200, Neut % (Auto) 68.6, Lymph % (Auto) 22.2, Letcher % (Auto) 8.0, Eos % (Auto) 0.8, Baso % (Auto) 0.2, Absolute Neuts (auto) 5.7, Absolute Lymphs (auto) 1.85, Nucleated RBC % 0 05/30/22 09:36: PT 11.9, INR 0.9, APTT 29.5 05/30/22 09:36: Sodium 140, Potassium 3.8, Chloride 109 H, Carbon Dioxide 29.0, Anion Gap 2 L, BUN 10, Creatinine 0.81, Estim Creat Clear Calc 116.66, Est GFR (MDRD) Af Amer 136, Est GFR (MDRD) Non-Af 112, BUN/Creatinine Ratio 12.4, Glucose 103, Calcium 8.9, Total Bilirubin 0.90, Direct Bilirubin 0.23, AST 23, ALT 30, Alkaline Phosphatase 58, Total Protein 7.0, Albumin 3.8, Globulin 3.2 05/30/22 14:00: Urine Color Yellow, Urine Clarity Clear, Urine pH 8.0, Ur Specific [place] 1.010, Urine Protein Negative, Urine Glucose (UA) Normal, Urine Ketones Negative, Urine Occult Blood Negative, Urine Nitrite Negative, Urine Bilirubin Negative, Urine Urobilinogen Normal, Ur Leukocyte Esterase Negative, Urine RBC 0 SEEN, Urine WBC 0 SEEN, Ur Squamous Epith Cells 0 SEEN, Amorphous Sediment 1+, Urine Bacteria 0 SEEN, Urine Mucus 0 SEEN Micro: Microbiology 05/30/22 14:57 Stool Stool Lactoferrin - Final 05/30/22 14:57 Stool Enteric Bacteriology - Final 05/30/22 14:57 Stool C. difficile DNA Amplification - Final Radiography Diagnostic Testing: Radiology Impression Abdomen/Pelvis CT 05/30/22 09:15 IMPRESSION: Findings suggestive of a inflammatory bowel disease involving the terminal ileum in the right hemicolon. Sigmoid diverticulosis. Diffuse bladder wall thickening. Electronically Signed: Robbi Delcid MD at 12:05 EST Reading Location ID and State: [facility] / [place] , Service support , Lumbar Spine X-Ray 05/30/22 13:50 IMPRESSION: Straightening of the normal lumbar lordosis. Electronically Signed: Robbi Delcid MD at 14:13 EST , Physical Exam Narrative GENERAL: cooperative HEENT: Atraumatic; normocephalic EYES; Anicteric, Normal Conjunctiva NECK; supple, normal thyroid, RESPIRATORY: Diminished to auscultation CARDIOVASCULAR: Regular S1 S2, GI: soft, normoactive bowel sounds, : No Renal angle tenderness; EXTREMITIES: No edema, no clubbing, MUSCULOSKELETAL: no muscle wasting NEURO: Awake; no lateralizing signs. SKIN: No Rash PSYCH; Flat affect Assessment & Plan Assessment/Plan (1) Inflammatory bowel disease: (2) Abdominal pain: (3) Back pain: PLAN: Plan Patient is a 42-year-old male admitted with 6-week history of abdominal and back pain. CT of the abdomen obtained on admission did show ?CT of the abdomen pelvis shows findings suggestive of inflammatory bowel disease involving the terminal ileum in the right hemicolon, sigmoid diverticulosis, and diffuse bladder wall thic Abdominal pain ? Secondary to suspected inflammatory bowel disease. Patient has been seen in consultation by GI. Initial work-up including stool culture, fecal calprotectin, ESR CRP ordered. Plan is for patient to undergo colonoscopy with biopsy. Patient has been started on Solu-Medrol 2. Tobacco dependence - Counseled on cessation, offered nicotine patch for tobacco cravings 3. Chronic back pain ? Treated symptomatically 4. Chronic alcohol dependence ? Counseled on cessation 5. DVT prophylaxis -Lovenox 40 daily CODE STATUS -Full code Charges/Coding Visit Charges Inpatient E&M: 51908 Subs Hosp L2
[2022-05-31 07:29] LABS: Absolute Neutrophil Count 10.3 X10^3/uL (2.0-7.7); Basophil# 0.01 X10^3/uL; Basophil% 0.1 % (0-1); Eosinophil# 0.01 X10^3/uL; Eosinophils% 0.1 % (0-5); Hematocrit 43.9 % (40-54); Lymphocyte % 9.5 % (19-41); Mean Corp Hgb Conc 31.9 g/dL (32-36); Mean Corpuscular Hgb 30.8 pg (27.0-32.0); Mean Corpuscular Volume 96.5 fL (80-94); Mean Platelet Vol. 9.8 fl (6.2-12.0); Monocyte# 0.14 X10^3/uL; Monocyte% 1.2 % (0-10); NRBC Flagged by Analyzer 0 % (0-5); Neutrophil # 10.27 X10^3/uL (2.7-7.7); Neutrophil % 88.8 % (47-70); Platelet Count 318 K/mm3 (150-450); RBC Distribution Width CV 11.8 % (11.6-14.6); RBC Distribution Width SD 41.9 fl (35.1-43.9); Red Blood Count 4.55 M/mm3 (4.6-6.2); White Blood Count 11.6 K/mm3 (4.4-11.0)
[2022-05-31 08:08] LABS: ALB/GLOB Ratio 1.1 RATIO (0.9-2.4); AST(SGOT) 16 U/L (15-37); Alanine Aminotransfer ALT/SGPT 26 U/L (16-61); Albumin, Serum 3.5 g/dL (3.2-5.0); Alkaline Phosphatase 56 U/L (45-117); Anion Gap 7 (5-15); BUN 9 mg/dL (7-18); BUN/Creat Ratio 13.8 RATIO (10-20); Chloride 107 mmol/L (98-107); Creatinine, Serum 0.65 mg/dL (0.70-1.30); EST Glomerular Filtration Rate 144 mL/min (>60); Est Glom Filt Rate - Afr Amer 174 mL/min (>60); Estimated Creatinine Clearance 133.81 ml/min; Globulin 3.3 g/dL (2.2-4.2); Glucose 136 mg/dL (74-106); Potassium 3.7 mmol/L (3.5-5.1); Protein, Total 6.8 g/dL (6.4-8.2); Sodium Level 139 mmol/L (136-145); Thyroid Stim Hormone (TSH) 1.16 uIU/mL (0.358-3.74)
[2022-05-31] MEDS: Acetaminophen 325 MG Tablet 650 MG PO (09:34)
--- NOTE | 2022-05-31 10:19 | NURSING ---
Called report to Andrez CHRISTIAN in Endo
--- NOTE | 2022-05-31 11:30 | COLBX_PTH ---
PATIENT: SUPRIYA DYER LOC: [facility] U#:[id number] AGE/SX: 42/M ROOM: [facility] RE05/30/[address]: Dr. Jaguar Juarez MD : 1980 BED: 1 DIS: 06/01/2022 SPEC #: [id number] RECD: 05/31/22 12:49 STATUS: JUDE REQ #: [id number] SANGITA: 05/31/22 11:[address]: Sundeep Wheeler DEPT: SURGICAL PATHOLOGY RECD BY: Farzaneh Martines ENTERED: 06/01/22 08:54 SP TYPE: COLON BX OTHR DR: MD Dr. Brianna Carrillo, DO No Primary Care Phys Tissues: A - Ileum, NOS B - COLON BIOPSY C - Sigmoid colon biopsy Procedures: Surgery Specimen Level IV Comments: @ Ordering doctor for SUIV edited from to @ by CAR at 06/01/22 1443 @ Submitting doctor edited from to @ by RGOOD at 06/01/22 1443 HEADER OPERATION: Colonoscopy with biopsy, hot snare and clip application (MAC) PRE-OP DIAGNOSIS: Inflammatory bowel disease TISSUE SUBMITTED: A - Terminal ileum biopsy, B - Random colon biopsy, C - Sigmoid colon mass biopsy MICROSCOPIC DIAGNOSIS A. Terminal ileum, biopsy: Fragments of small intestinal mucosa, no pathologic diagnosis. B. Colon, random biopsy: Fragments of colonic mucosa, no pathologic diagnosis. C. Sigmoid colon mass, excisional biopsy: Consistent with inflammatory polyp with focal hyperplastic changes. See comment. SJ:fawad 06/02/2022 COMMENT Focal pseudoinvasion is noted. Immunohistochemistry ([id number]) supports the above diagnosis. Case has been reviewed in consultation with Dr. Osorio who concurs with the above diagnosis. IDC:AM MICROSCOPIC DESCRIPTION Slides are reviewed. GROSS DESCRIPTION A - Received in fixative is one container labeled with the patient's name and designated terminal ileum biopsy. The specimen consists of multiple irregular fragments of light nascimento soft tissue that in aggregate measure 1 x 0.4 x 0.1 cm. The specimen is totally submitted in one cassette. B - Received in fixative is one container labeled with the patient's name and designated random colon biopsy. The specimen consists of multiple irregular fragments of light nascimento soft tissue that in aggregate measure 1 x 0.5 x 0.1 cm. The specimen is totally submitted in one cassette. C - Received in fixative is one container labeled with the patient's name and designated sigmoid colon mass biopsy. The specimen consists of a piece of nascimento-pink soft tissue measuring 0.7 x 0.5 x 0.3 cm. The specimen is totally submitted in one cassette. / SJ:rg 06/01/2022 TC:5 CPT: 66974 x3
--- NOTE | 2022-05-31 12:41 | OP.COLON_ITS ---
Patient Name: Emil Barrientos Procedure Date: 05/31/2022 11:41 AM Date of : 1980 Age: 42 Procedure: Colonoscopy Indications: Abdominal pain in the left lower quadrant, Clinically significant diarrhea of unexplained origin Providers: Sundeep Wheeler DO Medicines: Monitored Anesthesia Care Patient Profile: This is a 42 year old male. Refer to note in patient chart for documentation of history and physical. Last Colonoscopy: none. The patient's first colonoscopy is today. Complications: No immediate complications. Procedure: Pre-Anesthesia Assessment: - Prior to the procedure, a History and Physical was performed, and patient medications and allergies were reviewed. The patient is competent. The risks and benefits of the procedure and the sedation options and risks were discussed with the patient. All questions were answered and informed consent was obtained. Patient identification and proposed procedure were verified by the physician in the pre-procedure area. Mental Status Examination: alert and oriented. Airway Examination: normal oropharyngeal airway and neck mobility. Respiratory Examination: clear to auscultation. CV Examination: normal. Prophylactic Antibiotics: The patient does not require prophylactic antibiotics. Prior Anticoagulants: The patient has taken no previous anticoagulant or antiplatelet agents. ASA Grade Assessment: II - A patient with mild systemic disease. After reviewing the risks and benefits, the patient was deemed in satisfactory condition to undergo the procedure. The anesthesia plan was to use monitored anesthesia care (MAC). Immediately prior to administration of medications, the patient was re-assessed for adequacy to receive sedatives. The heart rate, respiratory rate, oxygen saturations, blood pressure, adequacy of pulmonary ventilation, and response to care were monitored throughout the procedure. The physical status of the patient was re-assessed after the procedure. After I obtained informed consent, the scope was passed under direct vision. Throughout the procedure, the patient's blood pressure, pulse, and oxygen saturations were monitored continuously. The colonoscope was introduced through the anus and advanced to the terminal ileum. The colonoscopy was performed without difficulty. The patient tolerated the procedure well. The quality of the bowel preparation was good. Scope In: 11:45:56 AM Scope Withdrawal Time 0 hours 33 minutes 35 seconds Scope Out: 12:24:29 PM Total Procedure Duration Time 0 hours 38 minutes 33 seconds Findings: Hemorrhoids were found on perianal exam. Multiple small and large-mouthed diverticula were found in the recto-sigmoid colon, sigmoid colon, descending colon, splenic flexure, transverse colon, hepatic flexure and ascending colon. A 7 mm polyp was found in the sigmoid colon. The polyp was sessile. The polyp was removed with a hot snare. Resection and retrieval were complete. Verification of patient identification for the specimen was done. To prevent bleeding post-intervention, one hemostatic clip was successfully placed. There was no bleeding at the end of the procedure. Area was tattooed with an injection of Jane ink. An area of mildly congested mucosa was found in the sigmoid colon, in the descending colon, in the transverse colon and in the ascending colon. Biopsies were taken with a cold forceps for histology. Verification of patient identification for the specimen was done. Estimated blood loss was minimal. A localized area of the [Site] was congested. Biopsies were taken with a cold forceps for histology. Verification of patient identification for the specimen was done. Impression: - Hemorrhoids found on perianal exam. - Diverticulosis in the recto-sigmoid colon, in the sigmoid colon, in the descending colon, at the splenic flexure, in the transverse colon, at the hepatic flexure and in the ascending colon. - One 7 mm polyp in the sigmoid colon, removed with a hot snare. Resected and retrieved. Clip was placed. Tattooed. - Congested mucosa in the sigmoid colon, in the descending colon, in the transverse colon and in the ascending colon. Biopsied. - Congested mucosa terminal ileum. Biopsied. Recommendation: - Await pathology results. - Repeat colonoscopy in 1 year for surveillance based on pathology results. - Continue present medications. Procedure Code(s): --- Professional --- 72976, Colonoscopy, flexible; with removal of tumor(s), polyp(s), or other lesion(s) by snare technique 01954, Colonoscopy, flexible; with directed submucosal injection(s), any substance 47456, 59, Colonoscopy, flexible; with biopsy, single or multiple CPT copyright 2017 [employer]. All rights reserved. The codes documented in this report are preliminary and upon operating cost clerk review may be revised to meet current compliance requirements. Sundeep Wheeler DO 05/31/2022 12:41:27 PM This report has been signed electronically. Number of Addenda: 0 Note Initiated On: 05/31/2022 11:41 AM
--- NOTE | 2022-05-31 12:42 | OP.CCLET_ITS ---
05/31/2022 No Primary Care Physician Re : Colonoscopy procedure for Emil Barrientos Dear Care Physician This procedure was performed on Tuesday, May 31, 2022. My impressions and recommendations are as follows: Impressions : - Hemorrhoids found on perianal exam. - Diverticulosis in the recto-sigmoid colon, in the sigmoid colon, in the descending colon, at the splenic flexure, in the transverse colon, at the hepatic flexure and in the ascending colon. - One 7 mm polyp in the sigmoid colon, removed with a hot snare. Resected and retrieved. Clip was placed. Tattooed. - Congested mucosa in the sigmoid colon, in the descending colon, in the transverse colon and in the ascending colon. Biopsied. - Congested mucosa terminal ileum. Biopsied. Recommendations : - Await pathology results. - Repeat colonoscopy in 1 year for surveillance based on pathology results. - Continue present medications. My findings are described in the full procedure note, which is enclosed. If I can be of further assistance, please feel free to contact me at . Sincerely, Sundeep Wheeler, 05/31/2022 12:41:27 PM This report has been signed electronically.
[2022-05-31] MEDS: Lidocaine 5% Patch 1 PATCH TOPICAL (13:43)
[2022-05-31] MEDS: Enoxaparin 40 MG/0.4 ML Syringe SC (13:44)
[2022-05-31] MEDS: Ondansetron 4 MG/2 ML Vial IV (17:55)
[2022-05-31] MEDS: proCHLORPERazine 10 MG/2 ML Vial 5 MG IV (18:43)
[2022-06-01] MEDS: MethylPREDNISolone 125 MG/2 ML Vial IV ×3 (00:42→12:26)
[2022-06-01] MEDS: Lactated Ringers 1,000 ML 75 ML IV ×2 (01:50→14:12)
[2022-06-01 03:00] VITALS: PULSE 67
[2022-06-01 05:07] VITALS: BP 143/98; PULSE 81; RESP 16; TEMP 37.3; O2SAT 100
[2022-06-01] MEDS: Acetaminophen 325 MG Tablet 650 MG PO (05:09)
[2022-06-01 07:36] VITALS: O2SAT 96
[2022-06-01 07:52] VITALS: PULSE 92
[2022-06-01] MEDS: Ondansetron 4 MG/2 ML Vial IV (08:31)
--- NOTE | 2022-06-01 08:50 | PCM.PN.HOSP ---
Subjective Subjective Patient underwent colonoscopy by Dr. Wheeler today prior results are as below - Hemorrhoids found on perianal exam. - Diverticulosis in the recto-sigmoid colon, in the sigmoid colon, in the ?descending colon, at the splenic flexure, in the transverse colon, at the ?hepatic flexure and in the ascending colon. - One 7 mm polyp in the sigmoid colon, removed with a hot snare.? Resected and ?retrieved.? Clip was placed.? Tattooed. - Congested mucosa in the sigmoid colon, in the descending colon, in the ?transverse colon and in the ascending colon.? Biopsied. - Congested mucosa terminal ileum.? Biopsied. Seen this morning patient complains of nausea and abdominal ache and had some emesis with reddish streaks Objective Data Objective Data Vital Signs: Vital Signs Temp Pulse Resp BP Pulse Ox O2 Del Method 99.2 F H 92 16 143/98 H 96 Room Air 06/01/22 05:07 06/01/22 07:52 06/01/22 05:07 06/01/22 05:07 06/01/22 07:36 06/01/22 07:36 Oxygen Delivery Method Room Air Weight: 62.624 kg Body Mass Index (BMI) 18.2 Intake & Output: Intake and Output for Last 24 Hours 05/30/22 05/31/22 06/01/22 23:59 23:59 23:59 Intake Total 1360 / 3360 3713.75 / 3713.75 220 / 220 Output Total 300 / 300 Balance 1360 / 3360 3413.75 / 3413.75 220 / 220 Lab / Micro Data Result Diagrams: 05/31/22 06:46 05/31/22 06:46 Micro: Microbiology 05/31/22 12:33 Stool Enteric Bacteriology - Final 05/30/22 14:57 Stool Stool Lactoferrin - Final 05/30/22 14:57 Stool Enteric Bacteriology - Final 05/30/22 14:57 Stool C. difficile DNA Amplification - Final Physical Exam Narrative GENERAL: Patient is cooperative HEENT: Atraumatic; normocephalic EYES; Anicteric, Normal Conjunctiva NECK; supple, normal thyroid, RESPIRATORY: Diminished to auscultation CARDIOVASCULAR: Regular S1 S2, GI: soft, normoactive bowel sounds, : No Renal angle tenderness; EXTREMITIES: No edema, no clubbing, MUSCULOSKELETAL: no muscle wasting NEURO: Awake; no lateralizing signs. SKIN: No Rash PSYCH; Flat affect Assessment & Plan Assessment/Plan (1) Inflammatory bowel disease: (2) Abdominal pain: (3) Back pain: PLAN: Plan Patient is a 42-year-old male admitted with 6-week history of abdominal and back pain. CT of the abdomen obtained on admission did show ?CT of the abdomen pelvis shows findings suggestive of inflammatory bowel disease involving the terminal ileum in the right hemicolon, sigmoid diverticulosis, and diffuse bladder wall thic 1. Abdominal pain ? Secondary to suspected inflammatory bowel disease. Patient has been seen in consultation by GI. Initial work-up including stool culture, fecal calprotectin, ESR CRP ordered. Plan is for patient to undergo colonoscopy with biopsy. Patient has been started on Solu-Medrol -06/01/2022 patient underwent colonoscopy by Dr. Wheeler today prior results are as below - Hemorrhoids found on perianal exam. - Diverticulosis in the recto-sigmoid colon, in the sigmoid colon, in the ?descending colon, at the splenic flexure, in the transverse colon, at the ?hepatic flexure and in the ascending colon. - One 7 mm polyp in the sigmoid colon, removed with a hot snare.? Resected and ?retrieved.? Clip was placed.? Tattooed. - Congested mucosa in the sigmoid colon, in the descending colon, in the ?transverse colon and in the ascending colon.? Biopsied. - Congested mucosa terminal ileum.? Biopsied. Seen this morning patient complains of nausea and abdominal ache and had some emesis with reddish streaks 2. Tobacco dependence - Counseled on cessation, offered nicotine patch for tobacco cravings 3. Chronic back pain ? Treated symptomatically 4. Chronic alcohol dependence ? Counseled on cessation 5. DVT prophylaxis -Lovenox 40 daily CODE STATUS -Full code Charges/Coding Visit Charges Inpatient E&M: 17501 Subs Hosp L2
[2022-06-01] MEDS: LORazepam 2 MG/ML Syringe 0.5 MG IV (10:55)
[2022-06-01 11:50] VITALS: BP 145/96; PULSE 82; RESP 16; TEMP 36.9; O2SAT 99
--- NOTE | 2022-06-01 12:56 | CASEMGMT ---
SW met with patient. Introduced self and role at [facility]. Patient said he lives in [place]. SW provided patient with a Medicaid application, list of prescription assistance programs, [facility], and [facility]. Patient is not normally on any prescriptions. SW let patient know we will look to see what medications they are going to discharge him on and if they are expensive [facility] may be able to help him. SW did explain [facility] can only help 1 time a year. Marcy Douglas [employer] MARILYN
--- NOTE | 2022-06-01 14:44 | PCM.DC.SUM ---
Providers Date of Admission: 05/30/22 Date of Discharge: 06/01/22 Primary Care Physician: No Primary Care Phys Reason For Visit: COLITIS WITH SUSPECTED IBD Diagnosis Discharge Diagnosis (1) Inflammatory bowel disease: Status: Acute Code(s): K52.9 - Noninfective gastroenteritis and colitis, unspecified (2) Abdominal pain: Status: Acute Code(s): R10.9 - Unspecified abdominal pain (3) Back pain: Status: Acute Code(s): M54.9 - Dorsalgia, unspecified Plan Patient is a 42-year-old male admitted with 6-week history of abdominal and back pain. CT of the abdomen obtained on admission did show ?CT of the abdomen pelvis shows findings suggestive of inflammatory bowel disease involving the terminal ileum in the right hemicolon, sigmoid diverticulosis, and diffuse bladder wall thic 1. Abdominal pain ? Secondary to suspected inflammatory bowel disease. Patient has been seen in consultation by GI. Initial work-up including stool culture, fecal calprotectin, ESR CRP ordered. Plan is for patient to undergo colonoscopy with biopsy. Patient has been started on Solu-Medrol -06/01/2022 patient underwent colonoscopy by Dr. Wheeler today prior results are as below - Hemorrhoids found on perianal exam. - Diverticulosis in the recto-sigmoid colon, in the sigmoid colon, in the ?descending colon, at the splenic flexure, in the transverse colon, at the ?hepatic flexure and in the ascending colon. - One 7 mm polyp in the sigmoid colon, removed with a hot snare.? Resected and ?retrieved.? Clip was placed.? Tattooed. - Congested mucosa in the sigmoid colon, in the descending colon, in the ?transverse colon and in the ascending colon.? Biopsied. - Congested mucosa terminal ileum.? Biopsied. Seen this morning patient complains of nausea and abdominal ache and had some emesis with reddish streaks. Patient was placed on Protonix with improvement in symptoms discharged home instructed to follow-up with GI as well as PCP for subsequent care 2. Tobacco dependence - Counseled on cessation, offered nicotine patch for tobacco cravings 3. Chronic back pain ? Treated symptomatically 4. Chronic alcohol dependence ? Counseled on cessation 5. DVT prophylaxis -Lovenox 40 daily CODE STATUS -Full code Medications at Discharge Home Medications ondansetron 4 mg disintegrating tablet 4 mg PO Q8H PRN nausea and vomiting #20 tabs 06/01/22 pantoprazole 40 mg tablet,delayed release (Protonix) 40 mg PO DAILY #60 tabs 06/01/22 Hospital Course Summary of Care Provided Minutes Spent on Discharge: 35 Physical Exam Narrative GENERAL: Patient is cooperative HEENT: Atraumatic; normocephalic EYES; Anicteric, Normal Conjunctiva NECK; supple, normal thyroid, RESPIRATORY: Diminished to auscultation CARDIOVASCULAR: Regular S1 S2, GI: soft, normoactive bowel sounds, : No Renal angle tenderness; EXTREMITIES: No edema, no clubbing, MUSCULOSKELETAL: no muscle wasting NEURO: Awake; no lateralizing signs. SKIN: No Rash PSYCH; Flat affect Weight / BMI Weight Weight: 62.624 kg Body Mass Index (BMI) 18.2 ABG / Lab / Microbiology Data Result Diagrams: 05/31/22 06:46 05/31/22 06:46 Microbiology: Microbiology 05/31/22 12:33 Stool Enteric Bacteriology - Final 05/30/22 14:57 Stool Stool Lactoferrin - Final 05/30/22 14:57 Stool Enteric Bacteriology - Final 05/30/22 14:57 Stool C. difficile DNA Amplification - Final D/C Instructions Discharge Diet: No restrictions Discharge Activity: Return to Normal Activity Call your doctor if you observe: Fever of 101 or Higher, Shortness of breath, Fainting spells and Chest pain Meaningful Use Info Meaningful Use Diagnoses (Choose all that apply): None applicable Discharge Plan Admission Admit Date/Time: 05/30/22 13:00 Attending Provider: Jaguar Juarez Primary Care Provider: Care Physician,No Primary Consulting Providers: Brianna Elizabeth Discharge Orders/Prescriptions Prescriptions: New pantoprazole [Protonix] 40 mg tablet,delayed release (DR/EC) 40 mg PO DAILY Qty: 60 0RF ondansetron 4 mg tablet,disintegrating 4 mg PO Q8H PRN (Reason: nausea and vomiting) Qty: 20 0RF Referrals / Follow Up: Sundeep Wheeler DO [Med Staff - Active Staff] - Within 2 Weeks Care Physician,No Primary [Primary Care Provider] - Disposition Disposition (needs filled in before D/C Order can be placed): Home, Self Care Charges/Coding Visit Charges OBSV E&M: 25041 Observation care discharge
[2022-06-01 14:47] VITALS: BP 127/88; PULSE 81; RESP 16; TEMP 37.3; O2SAT 95
== END 2022-06-01 14:47 | disposition home or self-care (01) ==
LOC: ED 12:59 → PCU 13:49
PROVIDERS: Internal Medicine Gastroenterology; Admitting Provider Internal Medicine; Emergency Provider Emergency Medicine; Visit Provider Internal Medicine
PROC: 0DJD8ZZ Inspection of Lower Intestinal Tract, Via Natural or Artificial Opening Endoscopic (ICD-10-PCS; CPT 45378; principal; 2022-05-31 11:25)
DX: K52.9 Noninfective gastroenteritis and colitis, unspecified (principal); F12.99 Cannabis use, unspecified with unspecified cannabis-induced disorder; F10.20 Alcohol dependence, uncomplicated; K57.30 Diverticulosis of large intestine without perforation or abscess without bleeding; K63.5 Polyp of colon; F17.210 Nicotine dependence, cigarettes, uncomplicated; K64.9 Unspecified hemorrhoids; F17.290 Nicotine dependence, other tobacco product, uncomplicated
CPT/HCPCS: 45385; 45380; 45381; 36415; 72100; 74177; 80048; 80053; 80076; 81001; 83630; 83735; 84100; 84443; 85025; 85610; 85730; 87177; 87209; 87493; 87506; 88305; 88341; 88342; 93005; 96361; 96365; 96372; 96375; 96376; 99218; 99251; 99282; J7030; J7040; J7120; Q9967; A4216; A4648; G0378; G0463; J2405; J3490

== ENCOUNTER 2023-12-03 16:53 | Emergency (ER) | payer SELFPAY ==
[2023-12-03 16:54] VITALS: BP 120/84; PULSE 99; RESP 18; TEMP 36.9; O2SAT 100; BMI 17.3
--- NOTE | 2023-12-03 17:24 | EX.ED.DYSGE1 ---
HPI History of Present Illness Chief Complaint: Nausea/Vomiting/Diarrhea Informant: patient Narrative Narrative: 43-year-old male presenting to the emergency room with 1 day history of vomiting and diarrhea. Patient states that he went to the bathroom last evening around 2100 hrs. began to have diarrhea and then vomiting. He notes that he has had the urge to have diarrhea about every half an hour but over the past little bit not much has been coming out. Patient denies any fevers. States he has a history of diverticulitis but this does not feel like that. He states he had a diverticular flare last week that lasted an hour and a half and resolved when he used a heating pad and laid on the side. Patient had a colonoscopy reportedly 2 years ago. States he does not have a primary care doctor or station operator. States whenever he travels he tends to have GI issues. He states a friend told him it could be due to his anxiety. He notes about a 20 pound weight loss over about a year. This has been unintentional. He states normally does not have any difficulty eating. He does not recall any recent travel or bad food exposures. No known sick contacts. [facility] Medical History Tetrahydrocannabinol (THC) use disorder, mild, abuse Tobacco abuse Diverticulitis Home Medications ?Medication ?Instructions ?Recorded ?Last Taken ?Type ondansetron 4 mg disintegrating 4 mg PO Q8H PRN nausea and 06/01/22 Unknown Rx tablet vomiting #20 tabs pantoprazole 40 mg tablet,delayed 40 mg PO DAILY #60 tabs 06/01/22 Unknown Rx release (Protonix) ondansetron 4 mg disintegrating 4 mg PO Q6H PRN PRN Nausea #15 tabs 12/03/23 Unknown Rx tablet Allergy/AdvReac Type Severity Reaction Status Date / Time No Known Allergies Allergy Verified 12/03/23 16:54 Family History Other Bowel disease Surgical History Hx of appendectomy Social History Smoking Status: Current every day smoker tobacco type: cigars per week: 14 alcohol intake: current alcohol intake frequency: 3 or more drinks per day details: 3-4 12 oz [place] daily substance use type: marijuana ROS ROS ED Constitutional Constitutional ED: Denies chills, fever(s) or weight loss Eyes Eyes: Denies change in vision or diplopia ENT ENT ED: Denies ear pain, rhinorrhea or sore throat Cardiovascular Cardiovascular: Denies chest pain, orthopnea, palpitations or racing heartbeat Respiratory/Chest Respiratory/Chest: Denies cough, dyspnea or orthopnea Gastrointestinal Gastrointestinal: Reports diarrhea, nausea and vomiting; Denies abdominal pain Genitourinary Genitourinary ED: Denies dysuria, hematuria or urinary frequency Musculoskeletal Musculoskeletal: Denies arthralgias, back pain, myalgias or neck pain Integumentary Denies abscess or rash Neurologic Neurologic: Denies headache(s) or weakness Psychiatric Psychiatric: Denies anxiety, depression, suicidal ideation or suicidal thoughts Endocrine Endocrinology: Denies polydipsia, polyphagia or polyuria Allergic/Immunologic Allergic/Immunologic ED: Denies mouth swelling, tongue swelling or urticaria EXAM Physical Exam Const Vital Signs: 12/03/23 16:54 12/03/23 18:53 Temperature 98.4 F Temperature Source Temporal Pulse Rate 99 72 Respiratory Rate 18 14 Blood Pressure 120/84 H 167/84 H Blood Pressure Mean 96 111 Pulse Ox 100 99 Oxygen Delivery Method Room Air Room Air Positive well nourished and well developed General Appearance ED: well developed HEENT Reports normocephalic, head/scalp atraumatic and moist mucous membranes Eyes PERRL and EOMs intact bilaterally Neck no lymphadenopathy, supple and no JVD Resp normal respiratory effort and clear to auscultation bilaterally Cardio regular rate, regular rhythm and no murmurs GI normal to inspection, nondistended, normoactive bowel sounds and non-tender Auscultation: hyperactive bowel sounds Palpation: soft; Negative for tender or rebound tenderness present Back/Spine no CVA tenderness and normal ROM Extremity normal to inspection General Extremety ED: Negative for edema General Extremity: Negative for edema Neuro oriented x3 and CN's II-XII intact bilaterally Sensorium / Orientation: alert Motor Exam: strength 5/5 throughout Psych mental status grossly normal Mood & Affect: Negative for depressed or tearful Skin no rashes or lesions noted and no wounds MDM MDM MDM Narrative Medical decision making narrative: Differential diagnosis includes viral gastroenterology bacterial autoimmune colitis diverticulitis appendicitis bowel obstruction volvulus. White count 12.7 hemoglobin 15.6. BMP shows a glucose of 135. BUN of 11 creatinine 1.09 CO2 of 30 anion gap of 10. Liver enzymes within normal limits. Lipase 60. Urinalysis does not demonstrate any acute infection. Patient received IV fluids and Zofran. He required redosing with Zofran and later Toradol for pain. At this point I think the patient most likely has a viral etiology. He may have some underlying chronic gastrointestinal diagnosis given his symptoms when he travels and his weight loss. I would recommend that he follow-up with gastroenterology. I will write for Zofran here tonight. Would encourage oral fluids Imodium as needed. Return if worsening or concerns History & Record Review Discussion w/independent historian: Patient Lab Data Attestation: I reviewed the patient's lab results. Labs: Laboratory Results - last 24 hr 12/03/23 12/03/23 17:05 17:59 WBC 12.7 H RBC 5.06 Hgb 15.6 Hct 48.4 MCV 95.7 H MCH 30.8 MCHC 32.2 RDW Std Deviation 42.3 RDW Coeff of Emre 12.1 Plt Count 383 MPV 9.9 Immature Gran % (Auto) 0.200 Neut % (Auto) 85.2 H Lymph % (Auto) 7.7 L [place] % (Auto) 6.7 Eos % (Auto) 0.0 Baso % (Auto) 0.2 Absolute Neuts (auto) 10.9 H Absolute Lymphs (auto) 0.98 Nucleated RBC % 0 Sodium 138 Potassium 3.2 L Chloride 98 Carbon Dioxide 30.0 Anion Gap 10 BUN 11 Creatinine 1.09 Estim Creat Clear Calc 75.07 Est GFR (MDRD) Af Amer 96 Est GFR (MDRD) Non-Af 79 BUN/Creatinine Ratio 10.1 Glucose 135 H Calcium 10.5 H Total Bilirubin 0.80 Direct Bilirubin 0.16 AST 23 ALT 29 Alkaline Phosphatase 80 Total Protein 9.0 H Albumin 5.0 Globulin 4.0 Lipase 60 Urine Color Yellow Urine Clarity Clear Urine pH 7.0 Ur Specific [place] 1.010 Urine Protein 30 H Urine Glucose (UA) Normal Urine Ketones 150 A* Urine Occult Blood Negative Urine Nitrite Negative Urine Bilirubin Negative Urine Urobilinogen 1 H Ur Leukocyte Esterase 25 H Urine RBC 0 SEEN Urine WBC 0-5 SEEN Ur Squamous Epith Cells 0 SEEN Urine Bacteria 1+ Urine Mucus 2+ Radiography Diagnostic Testing: Clinical Impression(s) from Imaging Studies Abdomen/Pelvis CT 12/03/23 18:48 IMPRESSION: Negative CT of the abdomen and pelvis with intravenous contrast. Electronically Signed: Nadeem Singh MD at 19:53 EDT Reading Location ID and State: [facility] / [place] Tel , Service support , Discharge Plan Triage Chief Complaint: Nausea/Vomiting/Diarrhea ED Provider: Deepak Jimenez Dx/Rx/DC Orders Clinical Impression: Gastroenteritis, Acute dehydration Instructions: ED Gastroenteritis, Viral (Adult) Prescriptions: New ondansetron 4 mg tablet,disintegrating 4 mg PO Q6H PRN PRN (Reason: Nausea) Qty: 15 0RF No Action pantoprazole [Protonix] 40 mg tablet,delayed release (DR/EC) 40 mg PO DAILY Qty: 60 0RF ondansetron 4 mg tablet,disintegrating 4 mg PO Q8H PRN (Reason: nausea and vomiting) Qty: 20 0RF Primary Care Provider: Care Physician,No Primary Referrals: Friend,Sundeep, [Med Staff - Active Staff] - (for gastroenterology evaluation due to your chronic symptoms) Care Physician,No Primary [Primary Care Provider] - Print Language: Icelandic Disposition Disposition: Home, Self Care
[2023-12-03 17:43] LABS: Absolute Lymphocyte Count 0.98 X10^3/uL (0.83-4.51); Absolute Neutrophil Count 10.9 X10^3/uL (2.0-7.7); Basophil# 0.02 X10^3/uL; Basophil% 0.2 % (0-1); Hematocrit 48.4 % (40-54); Hemoglobin 15.6 g/dL (13.0-16.5); Lymphocyte # 0.98 X10^3/ul (0.83-4.51); Lymphocyte % 7.7 % (19-41); Mean Corp Hgb Conc 32.2 g/dL (32-36); Mean Corpuscular Hgb 30.8 pg (27.0-32.0); Mean Corpuscular Volume 95.7 fL (80-94); Mean Platelet Vol. 9.9 fl (6.2-12.0); Monocyte# 0.85 X10^3/uL; Monocyte% 6.7 % (0-10); NRBC Flagged by Analyzer 0 % (0-5); Neutrophil # 10.85 X10^3/uL (2.7-7.7); Neutrophil % 85.2 % (47-70); Platelet Count 383 K/mm3 (150-450); RBC Distribution Width CV 12.1 % (11.6-14.6); RBC Distribution Width SD 42.3 fl (35.1-43.9); Red Blood Count 5.06 M/mm3 (4.6-6.2); White Blood Count 12.7 K/mm3 (4.4-11.0)
[2023-12-03] MEDS: Ondansetron 4 MG/2 ML Vial IV ×2 (17:48→19:28)
[2023-12-03] MEDS: 0.9% Normal Saline (1000mL) 1,000 ML 999 ML IV (17:49)
[2023-12-03 18:03] LABS: Red Blood Cells-Urine 0 SEEN /hpf (0-5); Squamous Epithelial Cells - UA 0 SEEN /hpf (0-5)
[2023-12-03 18:15] LABS: Color, Urine Yellow (Yellow); Glucose, Dipstick Normal (Normal); Leukocyte Esterase-Dipstick 25 /ul (Negative); Nitrite-Dipstick Negative (Negative); Occult Blood-Urine Negative /ul (Negative); Protein-Dipstick 30 mg/dl (Negative); Urine Bilirubin Dipstick Negative (Negative); Urine Clarity Clear (Clear); Urine Urobilinogen 1 mg/dl (Normal)
[2023-12-03 18:15] LABS: AST(SGOT) 23 U/L (15-37); Alanine Aminotransfer ALT/SGPT 29 U/L (16-61); Alkaline Phosphatase 80 U/L (45-117); Anion Gap 10 (5-15); BUN 11 mg/dL (7-18); BUN/Creat Ratio 10.1 RATIO (10-20); Bilirubin, Direct 0.16 mg/dL (0.00-0.30); Calcium,Total 10.5 mg/dL (8.5-10.1); Chloride 98 mmol/L (98-107); Creatinine, Serum 1.09 mg/dL (0.70-1.30); EST Glomerular Filtration Rate 79 mL/min (>60); Est Glom Filt Rate - Afr Amer 96 mL/min (>60); Estimated Creatinine Clearance 75.07 ml/min; Glucose 135 mg/dL (74-106); Lipase 60 U/L (13-75); Potassium 3.2 mmol/L (3.5-5.1); Sodium Level 138 mmol/L (136-145)
--- NOTE | 2023-12-03 18:48 | CT_ITS ---
EXAM: CT ABDOMEN AND PELVIS WITH INTRAVENOUS CONTRAST CLINICAL INDICATION: abdominal pain TECHNIQUE: Helically acquired images were obtained of the abdomen and pelvis with intravenous contrast. This CT exam was performed using one or more of the following dose reduction techniques: automated exposure control, adjustment of the mA and/or kV according to patient size, and/or use of iterative reconstruction technique. CONTRAST: IV 100mL Isovue-370 COMPARISON: 05/30/2022 FINDINGS: LOWER THORAX: Unremarkable. Lung bases are clear. No cardiomegaly. No significant pericardial effusion. ABDOMEN: LIVER: Unremarkable. Homogeneous. No focal mass. GALLBLADDER AND BILE DUCTS: Unremarkable. No calcified gallstones. No gallbladder distention or wall edema. No intra- or extrahepatic biliary ductal dilation. PANCREAS: Unremarkable. No focal cystic or solid mass. SPLEEN: Unremarkable. Normal size without focal cystic or solid mass. ADRENALS: Unremarkable. No nodules. KIDNEYS AND URETERS: Unremarkable. Normal renal size and position. No hydronephrosis. STOMACH AND BOWEL: Unremarkable. No stomach or bowel distention. No focal inflammatory change. PELVIS: APPENDIX: No evidence of acute appendicitis. BLADDER: Unremarkable. REPRODUCTIVE: Unremarkable as visualized. No mass. ABDOMEN and PELVIS: INTRAPERITONEAL SPACE: Unremarkable. No ascites or other fluid collection. No free air. BONES/JOINTS: Unremarkable. No suspicious lytic or blastic abnormality. SOFT TISSUES: Unremarkable. No discrete abdominal or pelvic wall hernia. VASCULATURE: Unremarkable. Abdominal aorta is non-dilated. LYMPH NODES: Unremarkable. No enlarged lymph nodes. CT/Abdomen/Pelvis W IV Cont ONLY IMPRESSION: Negative CT of the abdomen and pelvis with intravenous contrast. Electronically Signed: Nadeem Singh MD at 19:53 EDT ,
[2023-12-03 18:51] LABS: Ketone-Dipstick 150 mg/dl (Negative)
[2023-12-03 18:52] LABS: Bacteria 1+ /hpf (None Seen); Mucous, Urine 2+ /hpf (<or=2+); White Blood Cells 0-5 SEEN /hpf (0-5)
[2023-12-03 18:53] VITALS: BP 167/84; PULSE 72; RESP 14; O2SAT 99
--- NOTE | 2023-12-03 18:53 | ED.RN ---
Lab called with critical urine ketones of 150. Dr. Jimenez notified
[2023-12-03] MEDS: 0.9% Normal Saline (1000mL) 1,000 ML 150 ML IV (19:26)
[2023-12-03] MEDS: Ketorolac 30 MG/ML Syringe IV (20:26)
[2023-12-03 20:31] VITALS: BP 126/81; PULSE 73; RESP 18; TEMP 36.7; O2SAT 98
== END 2023-12-03 20:34 | disposition home or self-care (01) ==
PROVIDERS: Emergency Provider Emergency Medicine; Visit Provider Emergency Medicine
DX: K52.9 Noninfective gastroenteritis and colitis, unspecified (principal); E86.0 Dehydration; F17.200 Nicotine dependence, unspecified, uncomplicated
CPT/HCPCS: 74177; 80048; 80076; 81001; 83690; 85025; 96361; 96374; 96375; 96376; 99283; J7030; Q9967; J2405

== ENCOUNTER 2024-01-18 04:51 | Emergency (ER) | payer SELFPAY ==
[2024-01-18 04:52] VITALS: BP 178/98; PULSE 71; RESP 16; TEMP 36.3; O2SAT 100; BMI 16.5
--- NOTE | 2024-01-18 05:08 | CT_ITS ---
INDICATION: llq pain EXAMINATION: CT ABDOMEN AND PELVIS WITH CONTRAST - CT Abdomen And Pelvis W/ Contrast Injection TECHNIQUE: Helically acquired images were obtained of the abdomen and pelvis following IV contrast. A radiation dose optimization technique was used for this scan. IV Contrast dosage and agent: 100 mL Isovue-370 Oral contrast: None. COMPARISON: April 25, 2019, December 02, 2013., April 25, 2019 FINDINGS: LOWER CHEST: Lung bases are clear. No cardiomegaly or pericardial effusion. LIVER: Homogeneous. No focal mass. GALLBLADDER AND BILIARY TREE: No calcified gallstones. No gallbladder distension or wall edema. No intra- or extrahepatic biliary ductal dilation. PANCREAS: No focal cystic or solid mass. SPLEEN: Normal size without focal cystic or solid mass. ADRENAL GLANDS: No nodules. KIDNEYS AND URETERS: Normal renal size and position. No hydronephrosis. PERITONEUM: No ascites or free air. No other fluid collection. BOWEL: Small hiatal hernia. No acute gastric finding. Wall thickening of the distal duodenum and proximal jejunum without distention or surrounding inflammation, more prominent than prior CT. Prior appendectomy. Scattered distal colonic diverticuli with minimal stranding at the splenic flexure. LYMPH NODES: No enlarged mesenteric or retroperitoneal lymph nodes. VESSELS: Aorta is non-dilated. URINARY BLADDER: Unremarkable. ABDOMINAL WALL: No discrete abdominal or pelvic wall hernia. BONES: No lytic or blastic abnormality. CT/Abdomen/Pelvis W IV Cont ONLY IMPRESSION: Colonic diverticulosis with minimal nonspecific fat stranding at the splenic flexure, possibly representing motion artifact or mild acute uncomplicated diverticulitis. Nonspecific progressive wall thickening of the distal duodenum and proximal jejunum without evidence of obstruction over multiple years. This is of unknown clinical significance, possibly new or recurrent enteritis. Small bowel lymphoma is rare but can cause similar appearance. GI follow-up is recommended. No abdominal adenopathy is appreciated. Electronically Signed: Hiam Jones MD at 7:10 EDT ,
--- NOTE | 2024-01-18 05:13 | ED.VIS.GI ---
HPI HPI - GI History of Present Illness Chief Complaint: Abd Pain Informant: patient Narrative Narrative: Presents by private vehicle worsening vomiting diarrhea abdominal pain since yesterday 4 PM. Started with vomiting. Pain with diarrhea shortly afterwards. States every 1/2 hour. Nonbloody. He states vomiting water. Nausea currently. Appendectomy in the past. Reports had diverticulitis in the past. 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 He had a colonoscopy [address] Wheeler. Denies any allergies. States with urination he needs to push it out however denies any dysuria or frequency. Prior similar symptoms: Yes PFSH PFSH Medical History Tetrahydrocannabinol (THC) use disorder, mild, abuse Tobacco abuse Diverticulitis Home Medications ?Medication ?Instructions ?Recorded ?Last Taken ?Type ondansetron 4 mg disintegrating 4 mg PO Q6H PRN PRN Nausea #15 tabs 12/03/23 Unknown Rx tablet ondansetron 4 mg disintegrating 4 mg PO Q8H PRN PRN Nausea #10 tabs 01/18/24 Unknown Rx tablet Allergy/AdvReac Type Severity Reaction Status Date / Time No Known Allergies Allergy Verified 01/18/24 04:53 Family History Other Bowel disease Surgical History Hx of appendectomy Social History Smoking Status: Current every day smoker tobacco type: cigars per week: 14 alcohol intake: current alcohol intake frequency: 3 or more drinks per day details: 3-4 12 oz [place] daily substance use type: marijuana ROS ROS ED Constitutional Constitutional ED: Denies chills, fever(s) or sweats Eyes Eyes: Denies change in vision ENT ENT ED: Denies dysphagia or sore throat Cardiovascular Cardiovascular: Denies chest pain, leg edema, palpitations or racing heartbeat Respiratory/Chest Respiratory/Chest: Denies cough, dyspnea or dyspnea on exertion Gastrointestinal Gastrointestinal: Reports abdominal pain, diarrhea, nausea and vomiting Genitourinary Genitourinary ED: Denies dysuria, hematuria or urinary frequency Musculoskeletal Musculoskeletal: Denies back pain, extremity pain or neck pain Integumentary Denies rash or wounds Neurologic Neurologic: Denies headache(s), paresthesias or weakness EXAM Physical Exam Const Vital Signs: 01/18/24 04:52 01/18/24 06:52 Temperature 97.3 F L Temperature Source Temporal Pulse Rate 71 65 Respiratory Rate 16 16 Blood Pressure 178/98 H 132/82 H Blood Pressure Mean 124 98 Pulse Ox 100 98 Oxygen Delivery Method Room Air Positive well nourished and well developed General Appearance ED: well developed and NAD HEENT HEENT Narrative: Mild dry mucosal membranes. normocephalic and atraumatic Eyes EOMs intact bilaterally and conjunctivae normal General Eye ED: Yes normal appearance of both eyes Neck no lymphadenopathy and supple General: Negative for tenderness Chest Wall Chest: Negative for tenderness Resp normal respiratory effort and normal air movement Effort and Inspection: symmetric chest movement; Negative for respiratory distress Cardio regular rate, regular rhythm and no murmurs Peripheral Pulses: pulses 2+ throughout GI normal to inspection, nondistended, normoactive bowel sounds GI Narrative: Tender palpation left lower quadrant without guarding or rebound. Negative Liriano's or McBurney's tenderness. Palpation: Negative for guarding or rebound tenderness present Back/Spine no CVA tenderness and no thoracic nor lumbar tenderness Extremity normal to inspection General Extremety ED: Negative for edema or tenderness General Extremity: Negative for edema Neuro oriented x3 and no sensory deficits noted Sensorium / Orientation: awake and alert Skin no rashes or lesions noted and no wounds MDM MDM MDM Narrative Medical decision making narrative: Interventions / MDM: Differential diagnosis: Cannabis hyperemesis syndrome, electrolyte abnormalities, dehydration Diagnosis considered but do not suspect: N/A My EKG interpretation: N/A Imaging independently reviewed and interpreted by myself: CT abdomen pelvis IV contrast: Questionable splenic flexure colitis, nonspecific thickening of duodenum and jejunum. External documents reviewed: Records from 2021: Admitted for terminal ileitis. Colonoscopy and steroid treatment in the hospital at that time. Test considered but not ordered:N/A ED course: Patient had slight dry mucosal membranes abdominal pain on the left lower quadrant no guarding or rebound. Abdomen vomiting diarrhea. Initial order abdominal labs fluids will check urine CT scan abdomen pelvis. Initial order for morphine Zofran and fluids. However after evaluation records noted marijuana use to the confirms daily use and improvement with hot baths throughout the day. Will hold on morphine at this time. Will add capsaicin cream and Haldol to help with symptoms. Will reevaluate. Apparently had terminal ileitis treated 2021. He states he did not follow-up with GI due to not having insurance. States father had diverticulitis and air bowel syndrome however he denies any Crohn's or ulcerative colitis. 729: Patient's symptoms improved with medications. Able to tolerate oral fluid. CT scan nonspecific thickening duodenum to jejunum. He had ileitis back in 2021. He is nontender in this region. Also splenic flexure questionable colitis however nontender also in this area. Discussed with patient concerns for hyperemesis cannabis syndrome with his history. Recurrent symptoms similar 6 weeks ago. Discussed THC cessation. Refill of Zofran sent to his pharmacy he is given follow-up with GI as an outpatient. Return precautions. All points were answered. Re-evaluation: stable Disposition discussed with patient/family/significant other: BMI of 51. Case discussed with consulting clinician: N/A This note was generated with [employer] dictation software. It may contain incorrect words, spelling, and punctuation that were not noted in checking the note before signing. Lab Data Labs: Laboratory Results - last 24 hr 01/18/24 01/18/24 05:05 07:05 WBC 7.7 RBC 4.80 Hgb 14.8 Hct 45.7 MCV 95.2 H MCH 30.8 MCHC 32.4 RDW Std Deviation 43.8 RDW Coeff of Emre 12.4 Plt Count 372 MPV 9.3 Immature Gran % (Auto) 0.400 Neut % (Auto) 85.2 H Lymph % (Auto) 9.0 L [place] % (Auto) 5.1 Eos % (Auto) 0.0 Baso % (Auto) 0.3 Absolute Neuts (auto) 6.6 Absolute Lymphs (auto) 0.69 L Nucleated RBC % 0 Sodium 138 Potassium 3.3 L Chloride 102 Carbon Dioxide 27.0 Anion Gap 9 BUN 11 Creatinine 0.98 Estim Creat Clear Calc 79.97 Est GFR (MDRD) Af Amer 108 Est GFR (MDRD) Non-Af 90 BUN/Creatinine Ratio 11.3 Glucose 143 H Calcium 9.8 Total Bilirubin 1.20 H AST 31 ALT 34 Alkaline Phosphatase 78 Total Protein 8.0 Albumin 4.7 Globulin 3.3 Albumin/Globulin Ratio 1.4 Lipase 21 Urine Color Yellow Urine Clarity Clear Urine pH 8.0 Ur Specific [place] 1.010 Urine Protein 15 H Urine Glucose (UA) Normal Urine Ketones 150 A* Urine Occult Blood Negative Urine Nitrite Negative Urine Bilirubin Negative Urine Urobilinogen Normal Ur Leukocyte Esterase Negative Urine RBC 0 SEEN Urine WBC 0 SEEN Ur Squamous Epith Cells 0 SEEN Urine Bacteria 1+ Urine Mucus 0 SEEN Radiography Diagnostic Testing: Clinical Impression(s) from Imaging Studies Abdomen/Pelvis CT 01/18/24 05:08 IMPRESSION: Colonic diverticulosis with minimal nonspecific fat stranding at the splenic flexure, possibly representing motion artifact or mild acute uncomplicated diverticulitis. Nonspecific progressive wall thickening of the distal duodenum and proximal jejunum without evidence of obstruction over multiple years. This is of unknown clinical significance, possibly new or recurrent enteritis. Small bowel lymphoma is rare but can cause similar appearance. GI follow-up is recommended. No abdominal adenopathy is appreciated. Electronically Signed: Hima Jones MD at 7:10 EDT Reading Location ID and State: [facility] / [place] Tel , Service support , Discharge Plan Triage Chief Complaint: Abd Pain ED Provider: Derian Fuentes Dx/Rx/DC Orders Clinical Impression: Tetrahydrocannabinol (THC) dependence, Nausea, vomiting and diarrhea, Abdominal pain, Dehydration Instructions: Cannabinoid Hyperemesis Syndrome, Abdominal Pain, Dehydration Prescriptions: New ondansetron 4 mg tablet,disintegrating 4 mg PO Q8H PRN PRN (Reason: Nausea) Qty: 10 0RF No Action ondansetron 4 mg tablet,disintegrating 4 mg PO Q6H PRN PRN (Reason: Nausea) Qty: 15 0RF Stand Alone Forms: ED Work / School Excuse Primary Care Provider: Care Physician,No Primary Referrals: Friend,Sundeep, DO [Med Staff - Active Staff] - 1-2 Weeks Care Physician,No Primary [Primary Care Provider] - Print Language: Greek Disposition Disposition: Home, Self Care Discharge Date/Time: 01/18/24 08:01
[2024-01-18] MEDS: 0.9% Normal Saline (1000mL) 1,000 ML 999 ML IV (05:24)
[2024-01-18] MEDS: Haloperidol Lactate 5 MG/ML Vial 2 MG IV (05:25)
[2024-01-18] MEDS: Ondansetron 4 MG/2 ML Vial IV (05:25)
[2024-01-18 05:30] LABS: Absolute Lymphocyte Count 0.69 X10^3/uL (0.83-4.51); Absolute Neutrophil Count 6.6 X10^3/uL (2.0-7.7); Basophil# 0.02 X10^3/uL; Basophil% 0.3 % (0-1); Hematocrit 45.7 % (40-54); Hemoglobin 14.8 g/dL (13.0-16.5); Lymphocyte # 0.69 X10^3/ul (0.83-4.51); Mean Corp Hgb Conc 32.4 g/dL (32-36); Mean Corpuscular Hgb 30.8 pg (27.0-32.0); Mean Corpuscular Volume 95.2 fL (80-94); Mean Platelet Vol. 9.3 fl (6.2-12.0); Monocyte# 0.39 X10^3/uL; Monocyte% 5.1 % (0-10); NRBC Flagged by Analyzer 0 % (0-5); Neutrophil # 6.57 X10^3/uL (2.7-7.7); Neutrophil % 85.2 % (47-70); Platelet Count 372 K/mm3 (150-450); RBC Distribution Width CV 12.4 % (11.6-14.6); RBC Distribution Width SD 43.8 fl (35.1-43.9); White Blood Count 7.7 K/mm3 (4.4-11.0)
[2024-01-18] MEDS: Capsaicin 0.025% 1 APPLIC Tube TOPICAL (05:33)
[2024-01-18 05:51] LABS: ALB/GLOB Ratio 1.4 RATIO (0.9-2.4); AST(SGOT) 31 U/L (15-37); Alanine Aminotransfer ALT/SGPT 34 U/L (16-61); Albumin, Serum 4.7 g/dL (3.2-5.0); Alkaline Phosphatase 78 U/L (45-117); Anion Gap 9 (5-15); BUN 11 mg/dL (7-18); BUN/Creat Ratio 11.3 RATIO (10-20); Calcium,Total 9.8 mg/dL (8.5-10.1); Chloride 102 mmol/L (98-107); Creatinine, Serum 0.98 mg/dL (0.70-1.30); EST Glomerular Filtration Rate 90 mL/min (>60); Est Glom Filt Rate - Afr Amer 108 mL/min (>60); Estimated Creatinine Clearance 79.97 ml/min; Globulin 3.3 g/dL (2.2-4.2); Glucose 143 mg/dL (74-106); Lipase 21 U/L (13-75); Potassium 3.3 mmol/L (3.5-5.1); Sodium Level 138 mmol/L (136-145)
[2024-01-18 06:52] VITALS: BP 132/82; PULSE 65; RESP 16; O2SAT 98
[2024-01-18 07:17] LABS: Mucous, Urine 0 SEEN /hpf (<or=2+); Red Blood Cells-Urine 0 SEEN /hpf (0-5); Squamous Epithelial Cells - UA 0 SEEN /hpf (0-5); White Blood Cells 0 SEEN /hpf (0-5)
[2024-01-18 07:23] LABS: Color, Urine Yellow (Yellow); Glucose, Dipstick Normal (Normal); Leukocyte Esterase-Dipstick Negative /ul (Negative); Nitrite-Dipstick Negative (Negative); Occult Blood-Urine Negative /ul (Negative); Protein-Dipstick 15 mg/dl (Negative); Urine Bilirubin Dipstick Negative (Negative); Urine Clarity Clear (Clear); Urine Urobilinogen Normal (Normal)
[2024-01-18 07:26] LABS: Ketone-Dipstick 150 mg/dl (Negative)
[2024-01-18 07:40] LABS: Bacteria 1+ /hpf (None Seen)
== END 2024-01-18 08:01 | disposition home or self-care (01) ==
PROVIDERS: Emergency Provider Emergency Medicine; Visit Provider Emergency Medicine
DX: F12.20 Cannabis dependence, uncomplicated (principal); R11.2 Nausea with vomiting, unspecified; E86.0 Dehydration; R10.9 Unspecified abdominal pain; R19.7 Diarrhea, unspecified; Z90.49 Acquired absence of other specified parts of digestive tract; F17.200 Nicotine dependence, unspecified, uncomplicated; K57.30 Diverticulosis of large intestine without perforation or abscess without bleeding
CPT/HCPCS: 74177; 80053; 81001; 83690; 85025; 96361; 96374; 96375; 99283; J7030; Q9967; A4216; J2405

== ENCOUNTER 2024-05-05 15:35 | Emergency (ER) | payer SELFPAY ==
[2024-05-05 15:36] VITALS: BP 127/80; PULSE 91; RESP 16; TEMP 36.8; O2SAT 100; BMI 17.0
--- NOTE | 2024-05-05 15:53 | CT_ITS ---
STUDY: CT ABDOMEN AND PELVIS WITH CONTRAST REASON FOR EXAM: Male, 44 years old. LLQ pain RADIATION DOSAGE (If Supplied By Facility): CTDIvol = ( 9.12 ) mGy, DLP = ( 694.89 ) mGycm TECHNIQUE: Transaxial images were obtained from the dome of the diaphragm to the symphysis pubis without oral contrast. IV 100mL Isovue-300 was administered. Sagittal and coronal images were reconstructed. Individualized dose optimization techniques were used for this CT. COMPARISON: None. FINDINGS: The visualized lung bases are unremarkable. The visualized portions of the heart are within normal limits. Normal liver. Normal gallbladder and extrahepatic biliary system. Normal spleen. Borderline ductal prominence in the pancreas. Normal bilateral adrenal glands. Normal right kidney. Normal left kidney. Small hiatal hernia. Slightly fluid distended distal esophagus. Wall thickening of the duodenum Normal colon. The appendix is not visualized. Normal abdominal aorta. Normal inferior vena cava. Normal retroperitoneum. Normal urinary bladder. Normal abdominal wall. Normal osseous structures. Motion artifact limiting some images. CT/Abdomen/Pelvis W IV Cont ONLY IMPRESSION: Small hiatal hernia. Slightly fluid distended distal esophagus. Wall thickening of the duodenum Electronically Signed: Negro Gonsalves DO at 18:06 EST ,
--- NOTE | 2024-05-05 16:04 | EX.ED.DYSGE1 ---
HPI History of Present Illness Chief Complaint: Abd Pain Narrative Narrative: Patient is a 44-year-old male past medical history of diverticulitis who presents to the emergency department chief complaint of abdominal pain. Patient states that yesterday evening he developed abdominal pain that been progressively worsening. Patient notes that he has had colonoscopies in the past and states that he had polyps removed at the last colonoscopy and states that he is supposed to have another 1 however he does not have insurance therefore this was not performed. Patient states that he has had nausea vomiting and has not been able to tolerate oral intake. Patient states that he is not having bowel movements and passing very little gas. He states that he did have a appendectomy in the past. [facility] Medical History Tetrahydrocannabinol (THC) use disorder, mild, abuse Tobacco abuse Diverticulitis Home Medications ?Medication ?Instructions ?Recorded ?Last Taken ?Type ondansetron 4 mg disintegrating 4 mg PO Q6H PRN PRN Nausea #15 tabs 12/03/23 Unknown Rx tablet ondansetron 4 mg disintegrating 4 mg PO Q8H PRN PRN Nausea #10 tabs 01/18/24 Unknown Rx tablet dicyclomine 10 mg capsule 10 mg PO TID #14 caps 05/05/24 Unknown Rx ondansetron 4 mg disintegrating 4 mg PO Q6H PRN nausea and 05/05/24 Unknown Rx tablet vomiting #20 tabs Allergy/AdvReac Type Severity Reaction Status Date / Time No Known Allergies Allergy Verified 05/05/24 15:38 Family History Other Bowel disease Surgical History Hx of appendectomy Social History Smoking Status: Current every day smoker tobacco type: cigars per week: 14 alcohol intake: current alcohol intake frequency: 3 or more drinks per day details: 3-4 12 oz [place] daily substance use type: marijuana ROS ROS ED ROS Narrative Constitutional: Denies any fevers, chills, headaches, lightness, dizziness Cardiovascular: Denies chest pain or palpitations Respiratory: Denies coughing wheezing shortness of breath Abdomen: Complains of abdominal pain nausea vomiting as noted above denies dark tarry stools denies blood in stool : Denies any urinary symptoms Neurological: Denies any numbness, weakness, tingling Musculoskeletal: Denies back pain Skin: Denies rashes or lesions EXAM Physical Exam Narrative Exam Narrative: General: Patient lying in bed rest comfortably did not appear to be acute distress Head: Atraumatic, normocephalic Eyes: PERRL bilateral, EOMI bilateral, no conjunctival injection Neck: Soft, supple, trachea midline, Cardiovascular: Regular rate and rhythm no murmurs gallops rubs noted Respiratory: Clear to auscultation bilaterally Abdomen: Soft, nondistended, tender to palpation left lower quadrant no rebound or guarding on exam, bowel sounds present in 4 Extremities: +5/5 strength noted in the bilateral upper and lower extremities Neurological: Patient following commands knew that he was at [facility] years 2023 Skin: Warm, dry, intact Const Vital Signs: 05/05/24 15:36 05/05/24 17:35 Temperature 98.2 F Temperature Source Oral Pulse Rate 91 78 Respiratory Rate 16 19 H Blood Pressure 127/80 H Blood Pressure Mean 95 Pulse Ox 100 100 Oxygen Delivery Method Room Air MDM MDM MDM Narrative Medical decision making narrative: Patient is a 44-year-old male who presents to the emerged part with chief complaint of abdominal pain. Patient will have a workup performed here on the differential diagnose includes but limited to small bowel obstruction, diverticulitis, pancreatitis. Once workup is obtained reviewed he will be reevaluated. Patient be given morphine Zofran for pain control. Patient CBC reviewed and was largely unremarkable no evidence leukocytosis white blood count normal 7.1, he went stable 14.4, plate count normal at 336. Patient sodium normal 138, potassium was mildly low at 3.1 he was given potassium supplementation here in the emergency department. Patient's creatinine normal at 0.85. Patient's AST and ALT were 18 and 24 respectively lipase normal at 22. Patient CT abdomen pelvis with IV contrast was reviewed and showed small hiatal hernia slightly fluid distended distal esophagus wall thickening of the duodenum no other acute findings. On reevaluation the patient is feeling much improved he would like to go home at this point time. I did discuss results with the patient he was advised to follow-up with a primary care physician in the outpatient setting. He was encouraged to return with worsening symptoms or any concerns. Patient will given prescription for Zofran and Bentyl. All question concerns answered bedside. Lab Data Labs: Laboratory Results - last 24 hr 05/05/24 16:11 WBC 7.1 RBC 4.63 Hgb 14.4 Hct 43.0 MCV 92.9 MCH 31.1 MCHC 33.5 RDW Std Deviation 42.5 RDW Coeff of Emre 12.3 Plt Count 336 MPV 9.2 Immature Gran % (Auto) 0.300 Neut % (Auto) 80.5 H Lymph % (Auto) 9.8 L Taliaferro % (Auto) 9.3 Eos % (Auto) 0.0 Baso % (Auto) 0.1 Absolute Neuts (auto) 5.7 Absolute Lymphs (auto) 0.69 L Nucleated RBC % 0 Sodium 138 Potassium 3.1 L Chloride 99 Carbon Dioxide 27.0 Anion Gap 11 BUN 11 Creatinine 0.85 Estim Creat Clear Calc 93.70 Est GFR (MDRD) Af Amer 127 Est GFR (MDRD) Non-Af 105 BUN/Creatinine Ratio 13.0 Glucose 123 H Calcium 9.7 Total Bilirubin 0.90 AST 18 ALT 24 Alkaline Phosphatase 73 Total Protein 7.8 Albumin 4.4 Globulin 3.4 Albumin/Globulin Ratio 1.3 Lipase 22 Radiography Diagnostic Testing: Clinical Impression(s) from Imaging Studies Abdomen/Pelvis CT 05/05/24 15:53 IMPRESSION: Small hiatal hernia. Slightly fluid distended distal esophagus. Wall thickening of the duodenum Electronically Signed: Negro Gonsalves DO at 18:06 EST Reading Location ID and State: [facility] / [place] Tel [phone], Service support , Discharge Plan Triage Chief Complaint: Abd Pain ED Provider: Shane Gaxiola Dx/Rx/DC Orders Clinical Impression: Abdominal pain Prescriptions: New ondansetron 4 mg tablet,disintegrating 4 mg PO Q6H PRN (Reason: nausea and vomiting) Qty: 20 0RF dicyclomine 10 mg capsule 10 mg PO TID Qty: 14 0RF No Action ondansetron 4 mg tablet,disintegrating 4 mg PO Q6H PRN PRN (Reason: Nausea) Qty: 15 0RF ondansetron 4 mg tablet,disintegrating 4 mg PO Q8H PRN PRN (Reason: Nausea) Qty: 10 0RF Primary Care Provider: Care Physician,No Primary Referrals: Care Physician,No Primary [Primary Care Provider] - Wendi Ryder DO [[facility]] - Activity Restrictions/Additional Instructions: Follow with your primary care physician that you referred to. Use prescriptions as prescribed. Return with worsening symptoms or any other concerns Print Language: Polish Disposition Disposition: Home, Self Care
[2024-05-05] MEDS: Ondansetron 4 MG/2 ML Vial IV (16:07)
[2024-05-05] MEDS: Morphine 4 MG/ML Syringe IV (16:07)
[2024-05-05 16:25] LABS: Absolute Lymphocyte Count 0.69 X10^3/uL (0.83-4.51); Absolute Neutrophil Count 5.7 X10^3/uL (2.0-7.7); Basophil# 0.01 X10^3/uL; Basophil% 0.1 % (0-1); Hemoglobin 14.4 g/dL (13.0-16.5); Lymphocyte # 0.69 X10^3/ul (0.83-4.51); Lymphocyte % 9.8 % (19-41); Mean Corp Hgb Conc 33.5 g/dL (32-36); Mean Corpuscular Hgb 31.1 pg (27.0-32.0); Mean Corpuscular Volume 92.9 fL (80-94); Mean Platelet Vol. 9.2 fl (6.2-12.0); Monocyte# 0.66 X10^3/uL; Monocyte% 9.3 % (0-10); NRBC Flagged by Analyzer 0 % (0-5); Neutrophil # 5.68 X10^3/uL (2.7-7.7); Neutrophil % 80.5 % (47-70); Platelet Count 336 K/mm3 (150-450); RBC Distribution Width CV 12.3 % (11.6-14.6); RBC Distribution Width SD 42.5 fl (35.1-43.9); Red Blood Count 4.63 M/mm3 (4.6-6.2); White Blood Count 7.1 K/mm3 (4.4-11.0)
[2024-05-05 16:39] LABS: ALB/GLOB Ratio 1.3 RATIO (0.9-2.4); AST(SGOT) 18 U/L (15-37); Alanine Aminotransfer ALT/SGPT 24 U/L (16-61); Albumin, Serum 4.4 g/dL (3.2-5.0); Alkaline Phosphatase 73 U/L (45-117); Anion Gap 11 (5-15); BUN 11 mg/dL (7-18); Calcium,Total 9.7 mg/dL (8.5-10.1); Chloride 99 mmol/L (98-107); Creatinine, Serum 0.85 mg/dL (0.70-1.30); EST Glomerular Filtration Rate 105 mL/min (>60); Est Glom Filt Rate - Afr Amer 127 mL/min (>60); Globulin 3.4 g/dL (2.2-4.2); Glucose 123 mg/dL (74-106); Lipase 22 U/L (13-75); Potassium 3.1 mmol/L (3.5-5.1); Protein, Total 7.8 g/dL (6.4-8.2); Sodium Level 138 mmol/L (136-145)
[2024-05-05 17:35] VITALS: PULSE 78; RESP 19; O2SAT 100
[2024-05-05] MEDS: Potassium Chloride Oral Tablet 20 MEQ 60 MEQ PO (18:42)
[2024-05-05 18:47] VITALS: BP 122/84; PULSE 78; RESP 19; TEMP 36.6; O2SAT 100
== END 2024-05-05 18:50 | disposition home or self-care (01) ==
PROVIDERS: Emergency Provider Emergency Medicine; Visit Provider Emergency Medicine
DX: R10.9 Unspecified abdominal pain (principal); R11.2 Nausea with vomiting, unspecified; K44.9 Diaphragmatic hernia without obstruction or gangrene; K22.89 Other specified disease of esophagus; K63.89 Other specified diseases of intestine; E87.6 Hypokalemia; F17.290 Nicotine dependence, other tobacco product, uncomplicated; Z87.19 Personal history of other diseases of the digestive system; Z90.49 Acquired absence of other specified parts of digestive tract; Z86.0100 Personal history of colon polyps, unspecified
CPT/HCPCS: 74177; 80053; 83690; 85025; 96374; 96375; 99283; Q9967; A4216; J2405